=== PATIENT | female | born 1930 | race Caucasian/White ===

== ENCOUNTER 2016-11-09 11:06 | Inpatient (IN) | payer OTHER ==
--- NOTE | 2016-11-09 11:44 | PDOC ---
History of Present Illness - General Chief Complaint: Weakness Stated Complaint: DIFFICULTY WALKING Time Seen by Provider: 11/09/16 11:27 History Source: Patient, Spouse Exam Limitations: No Limitations - History of Present Illness Initial Comments: 11/09/16 11:34 86-year-old female with reportedly no past medical history, but patient has not seen a primary care physician for 30 years, presents with ascending lower extremity numbness. This had occurred over the course of 2 weeks. She initially felt numbness in her toes but had slowly progressed up to her bilateral hips. Patient denies any urinary or bowel incontinence. Denies any back pain. She started feel occasionally tingling and paresthesias in her upper extremities but denies numbness at this time. Denies headache, chest pain or shortness of breath. Denies abdominal pain. Patient does not recall any prior illnesses to this event. She typically walks without assistance but now uses her 's wheelchair to get around. Past History - Past Medical History Allergies/Adverse Reactions: Allergies Allergy/AdvReac Type Severity Reaction Status Date / Time No Known Allergies Allergy Verified 11/09/16 11:14 Home Medications: Ambulatory Orders Aspirin [Aspirin EC] 81 mg PO DAILY 11/09/16 Disorders: Yes (ENDOMETRIOSIS) - Surgical History Appendectomy: Yes (1947) - Psycho/Social/Smoking Cessation Hx Anxiety: No Suicidal Ideation: No Smoking History: Never smoked Information on smoking cessation initiated: No Hx Alcohol Use: Yes (WINE OCCASIONALLY) Drug/Substance Use Hx: No Substance Use Type: None Review of Systems - Review of Systems Able to Perform ROS?: Yes Comments:: 11/09/16 11:46 GENERAL/CONSTITUTIONAL: No fever, weakness. HEAD, EYES, EARS, NOSE AND THROAT: No change in vision. No ear pain or discharge. No sore throat. CARDIOVASCULAR: No chest pain or shortness of breath. RESPIRATORY: No cough, wheezing, or hemoptysis. GASTROINTESTINAL: No abdominal pain, nausea, vomiting, diarrhea, or decreased PO intolerance. GENITOURINARY: No dysuria, frequency, or change in urination. MUSCULOSKELETAL: No joint or muscle swelling or pain. No neck or back pain. SKIN: No rash NEUROLOGIC: No headache, vertigo, loss of consciousness. Ascending lower extremity weakness bilateraaly ENDOCRINE: No increased thirst. No abnormal weight change. HEMATOLOGIC/LYMPHATIC: No anemia, easy bleeding, or history of blood clots. ALLERGIC/IMMUNOLOGIC: No hives or skin allergy. *Physical Exam - Vital Signs Last Vital Signs Temp Pulse Resp BP Pulse Ox 98.5 F 71 15 201/96 97 11/09/16 11:13 11/09/16 11:13 11/09/16 11:13 11/09/16 11:13 11/09/16 11:13 - Physical Exam Comments: 11/09/16 11:54 GENERAL: Awake, alert, and fully oriented, in no acute distress. HEAD: No signs of trauma EYES: PERRLA, EOMI, sclera anicteric, conjunctiva clear ENT: Auricles normal inspection, hearing grossly normal, nares patent, oropharynx clear without exudates. NECK: Normal ROM, supple, no lymphadenopathy, JVD, or masses LUNGS: Breath sounds equal, clear to auscultation bilaterally. No wheezes, and no crackles HEART: Regular rate and rhythm, normal S1 and S2, no murmurs, rubs or gallops ABDOMEN: Soft, nontender, normoactive bowel sounds. No guarding, no rebound. No masses EXTREMITIES: Normal range of motion, no edema. No clubbing or cyanosis. No cords, erythema, or tenderness NEUROLOGICAL: Cranial nerves II through XII intact. Normal speech. Rectal tone normal. No saddle anesthesia. 5/5 strength all extremities (including lower). 2 + patella reflexes b/l. However, decreased sensation throughout lower extremities up to the bilateral hips. No thoracic or lumbar spine tenderness. 2 + DP pulses bilaterally. SKIN: Warm, Dry, normal turgor, no rashes or lesions noted. Heart Score/ECG Review #1 ECG reviewed & interpreted by me at: 11:35 11/09/16 12:08 NSR 68, left axis deviation, +LVH, no std/neeta, TWI III, QTC 423 msec ED Treatment Course - LABORATORY CBC & Chemistry Diagram: 11/09/16 11:50 11/09/16 11:50 Medical Decision Making - Medical Decision Making 11/09/16 12:09 Vital Signs Temp Pulse Resp BP Pulse Ox 98.5 F 71 15 201/96 97 11/09/16 11:13 11/09/16 11:13 11/09/16 11:13 11/09/16 11:13 11/09/16 11:13 Ascending numbness. Though atypical, will need to consider guillain baire syndrome. Though no back pain, will look at lumbar spine with CT for disc herniation and nerve impingement and will look for head CT for any central causes. Labs, UA. Neuro consulted and Dr. Rojas aware of care. Will need to admit the patient to the hospital given that she is unable to ambulate. 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 However no gross acute intercurrent pathology identified. Chest x-ray reviewed. Demonstrates no acute findings. Lumbar spine CT demonstrates multilevel degenerative disc disease as well as anterolisthesis of L4 over L5. There is also impinging left L4 nerve root at L4- L5 level as well as impinging right L5 and reaching left L5 nerve root at L5 and S1. It is certainly very possible that the nerve sensations are secondary to her lumbar spine disc degeneration. Case is discussed with neurologist Dr. Abdi Lauren will see the patient as an inpatient. We'll consider potential MRI. Labs reviewed. Case was discussed with Dr. Lee works as the patient for medical surgical observation. Case discussed in detail with admitting physician including history, physical exam and ancillary studies. Admitting physician has assumed care for the patient, will follow all pending diagnostics and will complete the evaluation and treatment. *DC/Admit/Observation/Transfer Diagnosis at time of Disposition: Unable to walk, Disorder of intervertebral disc of lumbar spine - Discharge Dispostion Condition at time of disposition: Good Admit: Yes
[2016-11-09 12:11] LABS: BASOPHIL 2.1 % (0-2.0); EOSINOPHIL 2.8 % (0-4.5); MCH 29.9 pg (25.7-33.7); MEAN CELL VOLUME 87.8 fl (80-96); MEAN PLT VOLUME 9.7 fl (7.5-11.1); NEUTROPHILS 63.4 % (42.8-82.8); PLATELET COUNT 248 K/MM3 (134-434); RDW 13.4 % (11.6-15.6); WHITE BLOOD COUNT 7.7 K/mm3 (4.0-10.8)
[2016-11-09 12:21] LABS: ALK PHOS 102 U/L (32-92); ANION GAP 12 (8-16); BILIRUBIN,TOTAL 0.6 mg/dl (0.2-1.0); CALCIUM 9.9 mg/dl (8.4-10.2); CO2 23 mmol/L (22-28); CPK(DFH) 56 IU/L (26-140); CREATININE 0.8 mg/dl (0.6-1.3); GLUCOSE,RANDOM 94 mg/dl (74-106); SGOT/AST 20 U/L (10-42); SGPT/ALT 13 U/L (10-40); TOT PROT 7.3 g/dl (6.4-8.3)
[2016-11-09 12:35] LABS: TROPONIN I (DFP) < 0.03 ng/ml (0.03-0.50)
[2016-11-09 14:56] LABS: ACTIVATED PTT 29.5 SECONDS (24.0-38.9)
[2016-11-09 15:00] LABS: INR 1.05 (0.82-1.09); PROTHROMBIN TIME (PATIENT) 11.7 SEC (10.2-13.0)
--- NOTE | 2016-11-09 16:00 | HP ---
Admitting History and Physical - Primary Care Physician PCP: Fernando Lee - Admission History of Present Illness: 86-year-old female with reportedly no past medical history, but patient has not seen a primary care physician for 30 years, presents with ascending lower extremity numbness. This had occurred over the course of 2 weeks. She initially felt numbness in her toes but had slowly progressed up to her bilateral hips. Patient denies any urinary or bowel incontinence. Denies any back pain. She started feel occasionally tingling and paresthesias in her upper extremities but denies numbness at this time. Denies headache, chest pain or shortness of breath. Denies abdominal pain. Patient does not recall any prior illnesses to this event. 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 - Smoking History Smoking history: Never smoked - Alcohol/Substance Use Hx Alcohol Use: Yes (WINE OCCASIONALLY) Home Medications - Allergies Allergies/Adverse Reactions: Allergies Allergy/AdvReac Type Severity Reaction Status Date / Time No Known Allergies Allergy Verified 11/09/16 11:14 - Home Medications Home Medications: Ambulatory Orders Aspirin [Aspirin EC] 81 mg PO DAILY 11/09/16 Physical Examination Vital Signs: Vital Signs Temperature 98.4 F 11/09/16 11:31 Pulse Rate 68 11/09/16 12:18 Respiratory Rate 16 11/09/16 12:18 Blood Pressure 180/80 11/09/16 12:18 O2 Sat by Pulse Oximetry (%) 97 11/09/16 12:18 Constitutional: Yes: No Distress HENT: Yes: Atraumatic Neck: Yes: Supple Cardiovascular: Yes: Regular Rate and Rhythm Respiratory: Yes: CTA Bilaterally Gastrointestinal: Yes: Normal Bowel Sounds Extremities: Yes: WNL Neurological: Yes: Alert, Oriented ...Motor Strength: WNL Imaging - Results Cat Scan: Pending Problem List - Problems (1) Inability to walk Assessment/Plan: mri lumbar soine neuro consult ortho consult prn pain meds pt eval Code(s): R26.2 - DIFFICULTY IN WALKING, NOT ELSEWHERE CLASSIFIED (2) Lumbar disc disease Code(s): M51.9 - UNSP THORACIC, THORACOLUM AND LUMBOSACR INTVRT DISC DISORDER Assessment/Plan Laboratory Tests 11/09/16 11/09/16 11/09/16 11:50 11:50 11:50 WBC 7.7 RBC 4.31 Hgb 12.9 Hct 37.9 MCV 87.8 MCHC 34.0 RDW 13.4 Plt Count 248 MPV 9.7 Neutrophils % 63.4 Lymphocytes % 24.2 Monocytes % 7.5 Eosinophils % 2.8 Basophils % 2.1 H INR 1.05 PTT (Actin FS) 29.5 Sodium 141 Potassium 4.2 Chloride 106 Carbon Dioxide 23 Anion Gap 12 BUN 27 H Creatinine 0.8 Creat Clearance w eGFR > 60 Random Glucose 94 Calcium 9.9 Total Bilirubin 0.6 AST 20 ALT 13 Alkaline Phosphatase 102 H Creatine Kinase Troponin I Total Protein 7.3 Albumin 4.0 Stool Occult Blood 11/09/16 11/09/16 11:50 11:50 WBC RBC Hgb Hct MCV MCHC RDW Plt Count MPV Neutrophils % Lymphocytes % Monocytes % Eosinophils % Basophils % INR PTT (Actin FS) Sodium Potassium Chloride Carbon Dioxide Anion Gap BUN Creatinine Creat Clearance w eGFR Random Glucose Calcium Total Bilirubin AST ALT Alkaline Phosphatase Creatine Kinase 56 Troponin I < 0.03 L Total Protein Albumin Stool Occult Blood Negative Active Medications Generic Name Dose Route Start Last Admin Trade Name Freq PRN Reason Stop Dose Admin Acetaminophen 650 mg 11/09/16 16:45 Tylenol - PO Q6H PRN FEVER OR PAIN
[2016-11-09] MEDS: ACETAMINOPHEN 325 MG TABLET (FP) PO PRN (16:10)
[2016-11-09 16:18] VITALS: BMI 23.8
[2016-11-10] MEDS: ACETAMINOPHEN 325 MG TABLET (FP) PO PRN ×3 (07:36→21:34)
[2016-11-10 09:08] LABS: URINE BILIRUBIN Negative (NEGATIVE); URINE BLOOD Trace-lysed (NEGATIVE); URINE GLUCOSE (UA) Negative (NEGATIVE); URINE KETONE Negative (NEGATIVE); URINE NITRITE Positive (NEGATIVE); URINE PROTEIN Negative (NEGATIVE); URINE UROBILINOGEN 0.2 E.U/dl (0.2-1.0)
[2016-11-10 09:24] LABS: URINE COLOR YELLOW; URINE LEUK ESTERASE 1+ (NEGATIVE)
[2016-11-10 12:10] LABS: URINE APPEARANCE HAZY
[2016-11-10 12:11] LABS: URINE BACTERIA MODERATE /hpf (NEGATIVE)
--- NOTE | 2016-11-10 14:20 | CONSULT ---
Consult - text type - Consultation Consultation Note: Neurology History of Present Illness 86-year-old female with reportedly no past medical history, but patient has not seen a primary care physician for 30 years, presents with ascending lower extremity numbness. This had occurred over the course of 2 weeks. She initially felt numbness in her toes but had slowly progressed up to her bilateral hips. Patient denies any urinary or bowel incontinence. She completed MRI L spine which demonstrated extensive degeneration and multilevel herniations and stenosis. Spoke with her and she reports chronic lumbar spine dysfunction. Surgical intervention not an option due to age and risks. PT and rehab may be beneficial but she would like to be home with her . I ordered physical therapy to help improve ambulation and assess needs. Past History - Past Medical History Allergies/Adverse Reactions: Allergies Allergy/AdvReac Type Severity Reaction Status Date / Time No Known Allergies Allergy Verified 11/09/16 11:14 Home Medications: Ambulatory Orders Aspirin [Aspirin EC] 81 mg PO DAILY 11/09/16 Disorders: Yes (ENDOMETRIOSIS) - Surgical History Appendectomy: Yes (1947) - Psycho/Social/Smoking Cessation Hx Anxiety: No Suicidal Ideation: No Smoking History: Never smoked Information on smoking cessation initiated: No Hx Alcohol Use: Yes (WINE OCCASIONALLY) Drug/Substance Use Hx: No Substance Use Type: None Review of Systems GENERAL/CONSTITUTIONAL: No fever, weakness. HEAD, EYES, EARS, NOSE AND THROAT: No change in vision. No ear pain or discharge. No sore throat. CARDIOVASCULAR: No chest pain or shortness of breath. RESPIRATORY: No cough, wheezing, or hemoptysis. GASTROINTESTINAL: No abdominal pain, nausea, vomiting, diarrhea, or decreased PO intolerance. GENITOURINARY: No dysuria, frequency, or change in urination. MUSCULOSKELETAL: No joint or muscle swelling or pain. No neck or back pain. SKIN: No rash NEUROLOGIC: No headache, vertigo, loss of consciousness. Ascending lower extremity weakness bilateraaly ENDOCRINE: No increased thirst. No abnormal weight change. HEMATOLOGIC/LYMPHATIC: No anemia, easy bleeding, or history of blood clots. ALLERGIC/IMMUNOLOGIC: No hives or skin allergy. *Physical Exam Last Vital Signs Temp Pulse Resp BP Pulse Ox 97.8 F 54 L 18 186/66 99 11/10/16 06:00 11/10/16 06:00 11/10/16 08:00 11/10/16 06:00 11/10/16 08:00 GENERAL: Awake, alert, and fully oriented, in no acute distress. HEAD: No signs of trauma EYES: PERRLA, EOMI, sclera anicteric, conjunctiva clear ENT: Auricles normal inspection, hearing grossly normal, nares patent, oropharynx clear without exudates. NECK: Normal ROM, supple, no lymphadenopathy, JVD, or masses LUNGS: Breath sounds equal, clear to auscultation bilaterally. No wheezes, and no crackles HEART: Regular rate and rhythm, normal S1 and S2, no murmurs, rubs or gallops ABDOMEN: Soft, nontender, normoactive bowel sounds. No guarding, no rebound. No masses EXTREMITIES: Normal range of motion, no edema. No clubbing or cyanosis. No cords, erythema, or tenderness NEUROLOGICAL: Cranial nerves II through XII intact. Normal speech. No saddle anesthesia. 5/5 strength all extremities (including lower). 2+ patella reflexes b/l. No thoracic or lumbar spine tenderness. 2+ DP pulses bilaterally. CBCD WBC 7.7 K/mm3 (4.0-10.8) 11/09/16 11:50 RBC 4.31 M/mm3 (3.60-5.2) 11/09/16 11:50 Hgb 12.9 GM/dl (10.7-15.3) 11/09/16 11:50 Hct 37.9 % (32.4-45.2) 11/09/16 11:50 MCV 87.8 fl (80-96) 11/09/16 11:50 MCHC 34.0 g/dl (32.0-36.0) 11/09/16 11:50 RDW 13.4 % (11.6-15.6) 11/09/16 11:50 Plt Count 248 K/MM3 (134-434) 11/09/16 11:50 MPV 9.7 fl (7.5-11.1) 11/09/16 11:50 CMP Sodium 141 mmol/L (136-145) 11/09/16 11:50 Potassium 4.2 mmol/L (3.5-5.1) 11/09/16 11:50 Chloride 106 mmol/L (98-107) 11/09/16 11:50 Carbon Dioxide 23 mmol/L (22-28) 11/09/16 11:50 Anion Gap 12 (8-16) 11/09/16 11:50 BUN 27 mg/dl (7-18) H 11/09/16 11:50 Creatinine 0.8 mg/dl (0.6-1.3) 11/09/16 11:50 Creat Clearance w eGFR > 60 (>60) 11/09/16 11:50 Calcium 9.9 mg/dl (8.4-10.2) 11/09/16 11:50 Total Bilirubin 0.6 mg/dl (0.2-1.0) 11/09/16 11:50 AST 20 U/L (10-42) 11/09/16 11:50 ALT 13 U/L (10-40) 11/09/16 11:50 Alkaline Phosphatase 102 U/L (32-92) H 11/09/16 11:50 Total Protein 7.3 g/dl (6.4-8.3) 11/09/16 11:50 Albumin 4.0 g/dl (3.5-5.0) 11/09/16 11:50 MRI L spine: reviewed Plan: 86-year-old female with reportedly no past medical history, but patient has not seen a primary care physician for 30 years, presents with ascending lower extremity numbness. This had occurred over the course of 2 weeks. She initially felt numbness in her toes but had slowly progressed up to her bilateral hips. Patient denies any urinary or bowel incontinence. She completed MRI L spine which demonstrated extensive degeneration and multilevel herniations and stenosis. Spoke with her and she reports chronic lumbar spine dysfunction. Surgical intervention not an option due to age and risks. PT and rehab may be beneficial but she would like to be home with her . I ordered physical therapy to help improve ambulation and assess needs. Fall precautions, uses walker at home and encouraged this.
--- NOTE | 2016-11-10 16:20 | CON.ORTH ---
Consult Consult Specialty:: Orthopedics Reason for Consultation:: leg pain - History of Present Illness History of Present Illness: 86 y/o female with no significant past medical history admitted for evaluation of bilateral leg pain and numbness. The patient reports that for years she has been having low back pain radiating to her bilateral lower extremities. Over the past 2 weeks she has developed progressive numbness to both lower extremities as well. Denies bladder/bowel dysfunction, saddle anesthesias. No trauma/falls/injury. 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 - Alcohol/Substance Use Hx Alcohol Use: Yes (WINE OCCASIONALLY) - Smoking History Smoking history: Never smoked Home Medications - Allergies Allergies/Adverse Reactions: Allergies Allergy/AdvReac Type Severity Reaction Status Date / Time No Known Allergies Allergy Verified 11/09/16 11:14 - Home Medications Home Medications: Ambulatory Orders Aspirin [Aspirin EC] 81 mg PO DAILY 11/09/16 Family Disease History - Family Disease History Family History: Unremarkable Review of Systems - Review of Systems Constitutional: reports: No Symptoms Eyes: reports: No Symptoms HENT: reports: No Symptoms Neck: reports: No Symptoms Cardiovascular: reports: No Symptoms Respiratory: reports: No Symptoms Gastrointestinal: reports: No Symptoms Genitourinary: reports: No Symptoms Musculoskeletal: reports: Back Pain Neurological: reports: Numbness Physical Exam for Ortho Vital Signs: Vital Signs Temperature 97.7 F 11/10/16 14:16 Pulse Rate 63 11/10/16 14:16 Respiratory Rate 16 11/10/16 14:16 Blood Pressure 167/59 11/10/16 14:16 O2 Sat by Pulse Oximetry (%) 98 11/10/16 14:16 Constitutional: Yes: Well Nourished, No Distress, Calm Neck: Yes: WNL, Supple, Trachea Midline Cardiovascular: Yes: WNL, Regular Rate and Rhythm Respiratory: Yes: WNL, Regular Integumentary: Yes: WNL Labs: INR, PTT INR 1.05 (0.82-1.09) 11/09/16 11:50 - Lower Extremity Leg: Yes: Other (Mild tenderness to the left sided lumbar paraspinal musculature. No spinous process tenderness. Negative straight leg test bilaterally.) - Affected Extremity Motor Strength: 5/5: Right Leg (5/5 strenght LLE, RLE) Peripheral Pulses WNL: Yes Peripheral Pulses: 2+ Left Doralis Pedis, 2+ Right Dorsalis Pedis Neuro/Vascular Assessment: Yes: Warm, [place], Normal Sensation Imaging - Results Cat Scan: Report Reviewed, Image Reviewed MRI: Report Reviewed (Lumbar spine MRI reviewed showing multi-level degenerative changes, disc herniations and spinal stenosis.), Image Reviewed Problem List - Problems (1) Lumbar disc disease Code(s): M51.9 - UNSP THORACIC, THORACOLUM AND LUMBOSACR INTVRT DISC DISORDER Assessment/Plan I reviewed today's findings with the patient -we reviewed that there are extensive degenerative changes present -the patient will begin PT -she will follow up with Dr. Liu in 1-2 weeks to consider further modalities including epidural injections and/or surgical intervention
--- NOTE | 2016-11-10 19:20 | PN ---
Progress Note, Physician History of Present Illness: doing well - Current Medication List Current Medications: Active Medications Acetaminophen (Tylenol -) 650 mg PO Q6H PRN PRN Reason: FEVER OR PAIN Last Admin: 11/10/16 14:27 Dose: 650 mg - Objective Vital Signs: Vital Signs Temperature 97.7 F 11/10/16 14:16 Pulse Rate 63 11/10/16 14:16 Respiratory Rate 16 11/10/16 14:16 Blood Pressure 167/59 11/10/16 14:16 O2 Sat by Pulse Oximetry (%) 98 11/10/16 14:16 Constitutional: Yes: No Distress HENT: Yes: Atraumatic Neck: Yes: Supple Cardiovascular: Yes: Regular Rate and Rhythm Respiratory: Yes: CTA Bilaterally Gastrointestinal: Yes: Normal Bowel Sounds Extremities: Yes: WNL Neurological: Yes: Alert, Oriented Labs: INR, PTT INR 1.05 (0.82-1.09) 11/09/16 11:50 Problem List - Problems (1) Inability to walk Assessment/Plan: mri lumbar spine done neuro and ortho consult..reviewed pt eval pt does not want to go to rehab Code(s): R26.2 - DIFFICULTY IN WALKING, NOT ELSEWHERE CLASSIFIED (2) Lumbar disc disease Code(s): M51.9 - UNSP THORACIC, THORACOLUM AND LUMBOSACR INTVRT DISC DISORDER Assessment/Plan
[2016-11-11] MEDS: ACETAMINOPHEN 325 MG TABLET (FP) PO PRN ×2 (10:20→20:48)
--- NOTE | 2016-11-11 11:17 | PN ---
Progress Note (short form) - Note Progress Note: Neurology History of Present Illness 86-year-old female with reportedly no past medical history, but patient has not seen a primary care physician for 30 years, presents with ascending lower extremity numbness. This had occurred over the course of 2 weeks. She initially felt numbness in her toes but had slowly progressed up to her bilateral hips. Patient denies any urinary or bowel incontinence. She completed MRI L spine which demonstrated extensive degeneration and multilevel herniations and stenosis. Spoke with her and she reports chronic lumbar spine dysfunction. Surgical intervention not an option due to age and risks. PT and rehab may be beneficial but she would like to be home with her . I ordered physical therapy to help improve ambulation and assess needs. Ortho consulted, patient otherwise stable. Active Medications Acetaminophen (Tylenol -) 650 mg PO Q6H PRN PRN Reason: FEVER OR PAIN Last Admin: 11/11/16 10:20 Dose: 650 mg *Physical Exam Last Vital Signs Temp Pulse Resp BP Pulse Ox 98.0 F 63 16 139/44 96 11/11/16 05:53 11/11/16 05:53 11/11/16 08:50 11/11/16 05:53 11/11/16 08:50 GENERAL: Awake, alert, and fully oriented, in no acute distress. HEAD: No signs of trauma EYES: PERRLA, EOMI, sclera anicteric, conjunctiva clear ENT: Auricles normal inspection, hearing grossly normal, nares patent, oropharynx clear without exudates. NECK: Normal ROM, supple, no lymphadenopathy, JVD, or masses LUNGS: Breath sounds equal, clear to auscultation bilaterally. No wheezes, and no crackles HEART: Regular rate and rhythm, normal S1 and S2, no murmurs, rubs or gallops ABDOMEN: Soft, nontender, normoactive bowel sounds. No guarding, no rebound. No masses EXTREMITIES: Normal range of motion, no edema. No clubbing or cyanosis. No cords, erythema, or tenderness NEUROLOGICAL: Cranial nerves II through XII intact. Normal speech. No saddle anesthesia. 5/5 strength all extremities (including lower). 2+ patella reflexes b/l. No thoracic or lumbar spine tenderness. 2+ DP pulses bilaterally. CBCD WBC 7.7 K/mm3 (4.0-10.8) 11/09/16 11:50 RBC 4.31 M/mm3 (3.60-5.2) 11/09/16 11:50 Hgb 12.9 GM/dl (10.7-15.3) 11/09/16 11:50 Hct 37.9 % (32.4-45.2) 11/09/16 11:50 MCV 87.8 fl (80-96) 11/09/16 11:50 MCHC 34.0 g/dl (32.0-36.0) 11/09/16 11:50 RDW 13.4 % (11.6-15.6) 11/09/16 11:50 Plt Count 248 K/MM3 (134-434) 11/09/16 11:50 MPV 9.7 fl (7.5-11.1) 11/09/16 11:50 CMP Sodium 141 mmol/L (136-145) 11/09/16 11:50 Potassium 4.2 mmol/L (3.5-5.1) 11/09/16 11:50 Chloride 106 mmol/L (98-107) 11/09/16 11:50 Carbon Dioxide 23 mmol/L (22-28) 11/09/16 11:50 Anion Gap 12 (8-16) 11/09/16 11:50 BUN 27 mg/dl (7-18) H 11/09/16 11:50 Creatinine 0.8 mg/dl (0.6-1.3) 11/09/16 11:50 Creat Clearance w eGFR > 60 (>60) 11/09/16 11:50 Calcium 9.9 mg/dl (8.4-10.2) 11/09/16 11:50 Total Bilirubin 0.6 mg/dl (0.2-1.0) 11/09/16 11:50 AST 20 U/L (10-42) 11/09/16 11:50 ALT 13 U/L (10-40) 11/09/16 11:50 Alkaline Phosphatase 102 U/L (32-92) H 11/09/16 11:50 Total Protein 7.3 g/dl (6.4-8.3) 11/09/16 11:50 Albumin 4.0 g/dl (3.5-5.0) 11/09/16 11:50 MRI L spine: reviewed Plan: 86-year-old female with reportedly no past medical history, but patient has not seen a primary care physician for 30 years, presents with ascending lower extremity numbness. This had occurred over the course of 2 weeks. She initially felt numbness in her toes but had slowly progressed up to her bilateral hips. Patient denies any urinary or bowel incontinence. She completed MRI L spine which demonstrated extensive degeneration and multilevel herniations and stenosis. Spoke with her and she reports chronic lumbar spine dysfunction. Surgical intervention not an option due to age and risks. PT and rehab may be beneficial but she would like to be home with her . I ordered physical therapy to help improve ambulation and assess needs. Fall precautions, uses walker at home and encouraged this. Ortho consulted. Continue ongoing mgmt.
--- NOTE | 2016-11-11 17:46 | PN ---
Progress Note, Physician History of Present Illness: doing well - Current Medication List Current Medications: Active Medications Acetaminophen (Tylenol -) 650 mg PO Q6H PRN PRN Reason: FEVER OR PAIN Last Admin: 11/11/16 10:20 Dose: 650 mg - Objective Vital Signs: Vital Signs Temperature 97.9 F 11/11/16 14:21 Pulse Rate 66 11/11/16 14:21 Respiratory Rate 16 11/11/16 14:21 Blood Pressure 149/47 11/11/16 14:21 O2 Sat by Pulse Oximetry (%) 97 11/11/16 14:21 HENT: Yes: Atraumatic Neck: Yes: Supple Cardiovascular: Yes: Regular Rate and Rhythm Respiratory: Yes: CTA Bilaterally Gastrointestinal: Yes: Normal Bowel Sounds Extremities: Yes: WNL Neurological: Yes: Alert, Oriented Labs: INR, PTT INR 1.05 (0.82-1.09) 11/09/16 11:50 Problem List - Problems (1) Inability to walk Assessment/Plan: mri lumbar spine done neuro and ortho consult..reviewed pt eval pt does not want to go to rehab arrange home health aid Code(s): R26.2 - DIFFICULTY IN WALKING, NOT ELSEWHERE CLASSIFIED (2) Lumbar disc disease Code(s): M51.9 - UNSP THORACIC, THORACOLUM AND LUMBOSACR INTVRT DISC DISORDER Assessment/Plan
[2016-11-12] MEDS: ACETAMINOPHEN 325 MG TABLET (FP) PO PRN ×2 (06:49→15:15)
[2016-11-12] MEDS ORDERED: SULFAMETHOXAZOLE/TRIMETHOPRIM 800MG/160MG D.S. TABLET PO ONE (14:47)
--- NOTE | 2016-11-12 14:47 | PN ---
Progress Note, Physician History of Present Illness: doing well - Current Medication List Current Medications: Active Medications Acetaminophen (Tylenol -) 650 mg PO Q6H PRN PRN Reason: FEVER OR PAIN Last Admin: 11/12/16 06:49 Dose: 650 mg Trimethoprim/Sulfamethoxazole (Bactrim Ds -) 1 each PO BID JASSON - Objective Vital Signs: Vital Signs Temperature 98.0 F 11/12/16 06:00 Pulse Rate 58 L 11/12/16 06:00 Respiratory Rate 20 11/12/16 08:00 Blood Pressure 180/65 11/12/16 06:00 O2 Sat by Pulse Oximetry (%) 98 11/12/16 08:00 Constitutional: Yes: No Distress HENT: Yes: Atraumatic Neck: Yes: Supple Cardiovascular: Yes: Regular Rate and Rhythm Respiratory: Yes: CTA Bilaterally Gastrointestinal: Yes: Normal Bowel Sounds Extremities: Yes: WNL Neurological: Yes: Alert, Oriented Labs: INR, PTT INR 1.05 (0.82-1.09) 11/09/16 11:50 Problem List - Problems (1) Inability to walk Assessment/Plan: doing better Code(s): R26.2 - DIFFICULTY IN WALKING, NOT ELSEWHERE CLASSIFIED (2) Lumbar disc disease Code(s): M51.9 - UNSP THORACIC, THORACOLUM AND LUMBOSACR INTVRT DISC DISORDER (3) UTI (urinary tract infection) Assessment/Plan: start po bactrim and continue for 1 week Code(s): N39.0 - URINARY TRACT INFECTION, SITE NOT SPECIFIED (4) HTN (hypertension) Assessment/Plan: will start norvasc monitor Code(s): I10 - ESSENTIAL (PRIMARY) HYPERTENSION
[2016-11-12] MEDS: amLODIPine BESYLATE 5 MG TABLET (FP) PO SCH (15:17)
[2016-11-12 16:36] LABS: BASOPHIL 0.9 % (0-2.0); EOSINOPHIL 3.5 % (0-4.5); MCH 29.4 pg (25.7-33.7); MCHC 33.1 g/dl (32.0-36.0); MEAN CELL VOLUME 88.9 fl (80-96); MEAN PLT VOLUME 9.5 fl (7.5-11.1); NEUTROPHILS 63.4 % (42.8-82.8); PLATELET COUNT 227 K/MM3 (134-434); WHITE BLOOD COUNT 7.2 K/mm3 (4.0-10.8)
[2016-11-12 17:03] LABS: ALBUMIN 3.5 g/dl (3.5-5.0); ALK PHOS 91 U/L (32-92); ANION GAP 9 (8-16); BILIRUBIN,TOTAL 0.5 mg/dl (0.2-1.0); CALCIUM 9.4 mg/dl (8.4-10.2); CO2 25 mmol/L (22-28); CREATININE 0.8 mg/dl (0.6-1.3); GLUCOSE,RANDOM 119 mg/dl (74-106); SGOT/AST 18 U/L (10-42); SGPT/ALT 12 U/L (10-40); TOT PROT 6.6 g/dl (6.4-8.3)
[2016-11-12] MEDS ORDERED: amLODIPine BESYLATE 5 MG TABLET (FP) PO ONE (20:30)
[2016-11-12] MEDS: SULFAMETHOXAZOLE/TRIMETHOPRIM 800MG/160MG D.S. TABLET PO SCH (21:06)
[2016-11-12 22:04] VITALS: TEMP 98.2
[2016-11-13 06:24] VITALS: BP 154/91; PULSE 80
--- NOTE | 2016-11-13 08:44 | EKG ---
Test Reason : Blood Pressure : / mmHG Vent. Rate : 068 BPM Atrial Rate : 068 BPM P-R Int : 164 ms QRS Dur : 090 ms QT Int : 398 ms P-R-T Axes : 058 -30 012 degrees QTc Int : 423 ms SINUS RHYTHM WITH PREMATURE ATRIAL COMPLEXES LEFT AXIS DEVIATION MINIMAL VOLTAGE CRITERIA FOR LVH, MAY BE NORMAL VARIANT ABNORMAL ECG WHEN COMPARED WITH ECG OF 06-FEB-2000 08:42, PREMATURE ATRIAL COMPLEXES ARE NOW PRESENT Confirmed by ANA ORTEGA MD ([id number]) on 11/13/2016 8:43:35 AM Referred By: JUANCARLOS DOYLE Confirmed By:ANA ORTEGA MD
[2016-11-13] MEDS: SULFAMETHOXAZOLE/TRIMETHOPRIM 800MG/160MG D.S. TABLET PO SCH (09:31)
[2016-11-13] MEDS: amLODIPine BESYLATE 5 MG TABLET (FP) PO SCH (09:31)
--- NOTE | 2016-11-13 20:09 | DS ---
Physical Examination Vital Signs: Vital Signs Temperature 98.2 F 11/13/16 06:00 Pulse Rate 80 11/13/16 06:00 Respiratory Rate 19 11/13/16 10:00 Blood Pressure 154/91 11/13/16 06:00 O2 Sat by Pulse Oximetry (%) 97 11/13/16 10:00 Labs: CBC, BMP 11/12/16 16:00 11/12/16 16:00 Discharge Summary Reason For Visit: LUMBAR DISC DISEASE Condition: Good - Instructions Diet, Activity, Other Instructions: see pmd next 2 days for bp follow up Disposition: HOME - Home Medications Comprehensive Discharge Medication List: Ambulatory Orders Aspirin [Aspirin EC] 81 mg PO DAILY 11/09/16 Sulfamethoxazole/Trimethoprim [Bactrim Ds -] 1 tab PO BID #14 tablet 11/12/16 Amlodipine Besylate [Norvasc -] 10 mg PO DAILY #30 tablet 11/13/16 DC HOME FU PMD FOR BP CHECK IN 1-2 DAYS
== END 2016-11-13 12:31 | disposition home or self-care (01) | DRG 552 ==
LOC: FER 11:06 → FM/S 15:19 → OBSVTOIN 15:19
PROVIDERS: ADMIT Internal Medicine; ATTEND Internal Medicine
DX: M51.9 Unspecified thoracic, thoracolumbar and lumbosacral intervertebral disc disorder (principal); N39.0 Urinary tract infection, site not specified; R26.2 Difficulty in walking, not elsewhere classified; I10 Essential (primary) hypertension
CPT/HCPCS: 36415; 70450-TC; 71010-TC; 72131-TC; 72148-TC; 80053; 81003; 81015; 82272; 82550; 84484; 85025; 85610; 85730; 87086; 87186; 93005; 97116-GP; 97162-GP; 99285-25

== ENCOUNTER 2019-04-25 15:23 | Inpatient (IN) | payer OTHER ==
[2019-04-25] MEDS ORDERED: ACETAMINOPHEN 325 MG TABLET (FP) PO ONE (16:29)
[2019-04-25] MEDS ORDERED: DIPHTH,PERTUSS(ACELL),TET 0.5 ML DISP.SYRIN IM ONE ×2 (16:29→18:02)
[2019-04-25] MEDS ORDERED: AMPICILLIN NA/SULBACTAM NA 3 GM in SODIUM CHLORIDE 100 ML IVPB ONE (16:30)
--- NOTE | 2019-04-25 16:33 | PDOC ---
Documentation entered by Jayla Mejia SCRIBE, acting as scribe for Xin Higgins MD. Xin Higgins MD: This documentation has been prepared by the Roberto sultana Sammi, SCRIBE, under my direction and personally reviewed by me in its entirety. I confirm that the documentation accurately reflects all work, treatment, procedures, and medical decision making performed by me. History of Present Illness - General Chief Complaint: Bite Stated Complaint: DOG BITE, FALL History Source: Patient Exam Limitations: No Limitations - History of Present Illness Initial Comments: 04/25/19 16:36 The patient is an 89 year old female with no medical history who presents for evaluation of a dog bite to the left index finger from around 7pm last night and now a fall today while coming to the ED. The patient was walking in the dark to her car when a stranger's pet dog had bitten her while she was petting him. As per friend, the patient refused to get medical attention as the sales market leader informed that the dog was fully vaccinated. She notes the left index finger was erythematous and painful this morning and endorses tingling to the area. The patient reports being evaluated at urgent care this afternoon, where she had irrigation and wound care, partial sutures placed for approximation, and notes being sent to the ED for IV antibiotics. Of note, the patient has not followed with a PMD in several years and cannot recall last tetanus. The patient also complains of right elbow pain and abrasion s/p mechanical trip and fall upon arrival to the ED. The patient reports attempting to step on the curb without her cane, then losing her balance and falling on her right side. Denies LOC or head trauma. Denies all other complaints. Denies fever, chills, chest pain, SOB, palpitation, dizziness, weakness, N, V, D , abdominal pain, bladder and bowel problems, leg swelling, No sick contacts or travel. No new changes in medications. Allergies: None Social history: Lives with family. No tobacco, ETOH or drug use. Surgical history: appendectomy, uterine fibroidectomy Meds: as documented in EMR PMD: None Review of systems Constitutional: no fevers or chills. No weakness HEENT: no headache or dizziness. No congestion. No visual/hearing disturbances. CVS: no cp or syncope. Resp: no sob. No cough. Gastrointestinal: no abdominal pain, nausea, vomiting, diarrhea. Genitourinary: no urinary sx, hematuria. MUSCULOSKELETAL: No joint pain and swelling. No neck or back pain. SKIN: +right elbow pain and ecchymosis, +laceration wound. +abrasions. Hematologic: no easy bruising/bleeding. NEUROLOGIC: No headache, dizziness, LOC or altered mental status. No weakness, + numbness or tingling. Psych: no anxiety or depression Allergic/Immunologic: no allergies All other systems reviewed and negative, or as documented in HPI. Physical exam General: Well appearing, awake and alert, NAD. HEENT: NCAT, PERRL, EOMI, clear conjunctiva, anicteric, moist mucous membranes , clear oropharynx, no oral lesions.. Neck: neck supple, FROM Resp: CTAB, normal and even respirations, no respiratory distress CVS: irregularly irregular, no murmurs, 2+ peripheral pulses throughout, no peripheral edema Abdomen: soft, NTND, no rebound or guarding. No CVAT. Back: nontender, normal inspection and ROM MSK: no edema, SHANNON x4, ROM limited in right elbow and left index finger. +palp swelling and ecchymosis to the right olecranon. Extremities: no calf tenderness Neuro: alert, oriented appropriately; no focal neurologic deficits Skin: Left finger middle phalanx on the palmar aspect with 4 cm V shaped laceration and [address], Left finger middle phalanx on the dorsal aspect measuring 2.5cm, few stitches in place. +right elbow superficial abrasions x2 with tenderness and surrounding ecchymosis. 04/25/19 17:56 04/25/19 17:57 04/25/19 18:28 04/26/19 07:27 Past History - Past Medical History Allergies/Adverse Reactions: Allergies Allergy/AdvReac Type Severity Reaction Status Date / Time No Known Allergies Allergy Verified 04/25/19 16:03 Home Medications: Ambulatory Orders Aspirin [Aspirin EC] 162 mg PO DAILY 11/09/16 Disorders: Yes (ENDOMETRIOSIS) - Surgical History Appendectomy: Yes (1948) - Psycho Social/Smoking Cessation Hx Smoking History: Never smoked Hx Alcohol Use: Yes (WINE OCCASIONALLY) Drug/Substance Use Hx: No Substance Use Type: None *Physical Exam - Vital Signs Last Vital Signs Temp Pulse Resp BP Pulse Ox 97.3 F L 88 20 170/105 H 96 04/25/19 15:24 04/25/19 15:24 04/25/19 15:24 04/25/19 15:24 04/25/19 15:24 Procedures - Splinting Splint Location: Right: Elbow (right olecranon fracture) Pre-Proc Neuro Vasc Exam: normal Hand-Made Type: orthoglass Splint Type: Yes: Posterior Post-Proc Neuro Vasc Exam: normal Robert Bandage: yes Sling: Yes Complications: No - Laceration/Wound Repair Left Dorsal Finger 2nd digit Wound Length: to 2.5 cm Wound Explored: contaminated Wound's Depth, Shape: linear, contused tissue Irrigated w/ Saline: Yes Betadine Prep: No (soap and water, alcohol) Anesthesia: 1% Lidocaine Amount of Anesthetic (ccs): 2 Wound Debrided: minimal Wound Repaired With: Sutures Suture Size/Type: 5:0 Number of Sutures: 2 (loose approximation) Sterile Dressing Applied: Yes Splint Applied: Yes (finger splint) Sling Applied: No Left Volar Finger 2nd digit Wound Length: 2.6 to 5.0 cm Wound Explored: contaminated Wound's Depth, Shape: irregular, flap, contused tissue Irrigated w/ Saline: Yes Betadine Prep: No (soap and water, alcohol) Anesthesia: 1% Lidocaine Amount of Anesthetic (ccs): 2 Wound Debrided: minimal Wound Repaired With: Sutures Suture Size/Type: 5:0 Number of Sutures: 4 (central one for the flap with corner stitch) Layer Closure: No Sterile Dressing Applied: Yes Splint Applied: Yes (finger splint) Type of Splint Applied: finger splint Progress: 04/25/19 20:05 bacitracin, xeroform, gauze and finger splint and dry dressing Heart Score/ECG Review #1 ECG reviewed & interpreted by me at: 16:45 General ECG Interpretation: Normal Rate, Normal Intervals Compared to previous ECG there are: Changes noted 04/25/19 17:38 Atrial fibrillation 92 bpm, left axis deviation, nonspecific T wave abnormalities in the inferior leads, normal intervals. ED Treatment Course - LABORATORY CBC & Chemistry Diagram: 04/25/19 17:35 04/25/19 17:35 - RADIOLOGY Radiology Studies Ordered: Category Date Time Status CHEST PA & LAT [RAD] Stat Radiology 04/25/19 16:29 Ordered ELBOW-RIGHT [RAD] Stat Radiology 04/25/19 16:31 Ordered FINGER(S) LEFT [RAD] Stat Radiology 04/25/19 16:31 Ordered Medical Decision Making - Medical Decision Making 04/25/19 16:32 Vital Signs Temp Pulse Resp BP Pulse Ox 97.3 F L 88 20 170/105 H 96 04/25/19 15:24 04/25/19 15:24 04/25/19 15:24 04/25/19 15:24 04/25/19 15:24 Patient with relatively large complicated partially sutured left index finger dog bite/laceration from yesterday. X-ray of the left second digit with loss of bone density and degenerative changes and swelling from the dog bite/laceration. No foreign body seen. No acute fracture or subluxation is seen. There may be prior distal radius fracture, patient is not tender there and did not have direct trauma on her left wrist from today. Left elbow with acute right olecranon fracture, will splint CXR unremarkable, degenerative changes, large heart and slight tortuous aorta, normal jacquelyn and clear lungs. ECG with afib, pt not symptomatic. on ASA already. no known history of Afib 04/25/19 17:35 tetanus updated declines analgesia IV Unasyn for empiric coverage. [facility] paperwork performed no rabies indicated for now, family working on tracking pet animal which did not display s/s rabies and reported to be immunized and owned. during ED stay, tracking cellulitis of the left second digit from laceration wound. 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 reached out to Dr Del Valle, discussed case, but unavailable for consultation. pt offered transfer to [facility] for specialty care/hands/plastics for the finger infection with complicated laceration from animal bite. discussed risks and benefits of transfer, pt refused. pt had signed paperwork initially for the refusal of transfer, but would be amenable to admission for IV abx and medical management. orthopedic cs with Dr Julio, also available for hand - discussed case, ok with the posterior splint, placed in the ED also discussed the finger laceration/wound infection - unasyn, additional washout and irrigation (pt had her finger soaking in soapy water, and had loose approx sutures placed at urgent care). 1 liter sterile water copiously with splash guard. recommended removal and primary loose closure and allow for drainage see procedure note done in the ED. admission to medical service, admitting to Dr Ledesma, s/o to Dr Crawley, discussed the care, consult, medical management. 04/25/19 19:58 04/25/19 20:05 Discharge - Discharge Information Problems reviewed: Yes Clinical Impression/Diagnosis: Laceration of finger, left, complicated Qualifiers: Encounter type: initial encounter Qualified Code(s): S61.412A - Laceration without foreign body of left hand, initial encounter Closed olecranon fracture Qualifiers: Encounter type: initial encounter Laterality: right Qualified Code(s): S52.021A - Displaced fracture of olecranon process without intraarticular extension of right ulna, initial encounter for closed fracture Condition: Fair - Admission Yes - Follow up/Referral - Patient Discharge Instructions - Post Discharge Activity
[2019-04-25] MEDS ORDERED: AMPICILLIN NA/SULBACTAM NA 3 GM VIAL ONE ×2 (17:09→20:59)
[2019-04-25 18:00] LABS: BASO % 0.7 % (0-2.0); EOS % 0.9 % (0-4.5); HEMOGLOBIN 13.7 GM/dl (10.7-15.3); LYMPH % 14.1 % (8-40); MCH 30.5 pg (25.7-33.7); MCHC 32.7 g/dl (32.0-36.0); MEAN CELL VOLUME 93.3 fl (80-96); MEAN PLT VOLUME 9.5 fl (7.5-11.1); MONO % 9.8 % (3.8-10.2); NEUT % 74.5 % (42.8-82.8); PLATELET COUNT 223 K/MM3 (134-434); RDW 12.7 % (11.6-15.6); WHITE BLOOD COUNT 12.8 K/mm3 (4.0-10.8)
[2019-04-25] MEDS ORDERED: ACETAMINOPHEN 325 MG TABLET (FP) ONE (18:02)
[2019-04-25 18:05] LABS: ALBUMIN 4.1 g/dl (3.4-5.0); BILIRUBIN,TOTAL 0.7 mg/dl (0.2-1); CALCIUM 9.3 mg/dl (8.5-10); CREATININE 0.8 mg/dl (0.55-1.3); POTASSIUM 4.3 mmol/L (3.5-5.1); TOT PROT 7.6 g/dl (6.4-8.2)
--- NOTE | 2019-04-25 20:08 | HP ---
Admitting History and Physical - Primary Care Physician PCP: - Admission Chief Complaint: dog bite, S/p fall History of Present Illness: 89 year old female with no medical history arrived to ED for evaluation after a dog bite to the left index finger yesterday (7pm at night) and now a fall today while coming to the ED. According to patient it was a stranger's pet dog that bitten her while she was petting him. As per friend, the patient refused to get medical attention as the terrazzo polisher helper informed that the dog was fully vaccinated, however she later in the morning noted the left index finger was erythematous and painful and also endorses tingling to the area. The patient reports being evaluated at urgent care this afternoon, where she had irrigation and wound care , partial sutures placed for approximation, and notes being sent to the ED for IV antibiotics. Patient has not followed up with PMD in several years and cannot recall last tetanus. The patient also complains of right elbow pain and abrasion s/p mechanical trip and fall upon arrival to the ED. The patient reports attempting to step on the curb without her cane, then losing her balance and falling on her right side. Denies LOC or head trauma. Patient denies fever, chills, chest pain, SOB, palpitation, dizziness, weakness , N, V, D, abdominal pain, bladder and bowel problems, leg swelling, No sick contacts or travel. No new changes in medications. History Source: Patient, Medical Record Limitations to Obtaining History: No Limitations - Past Medical History Renal/: Yes: Other (Endometriosis) - Past Surgical History Past Surgical History: Yes: Appendectomy - Smoking History Smoking history: Never smoked Have you smoked in the past 12 months: No - Alcohol/Substance Use Hx Alcohol Use: Yes (WINE OCCASIONALLY) History of Substance Use: reports: None - Social History Usual Living Arrangement: Yes: Alone ADL: Independent History of Recent Travel: No Home Medications - Allergies Allergies/Adverse Reactions: Allergies Allergy/AdvReac Type Severity Reaction Status Date / Time No Known Allergies Allergy Verified 04/25/19 16:03 - Home Medications Home Medications: Ambulatory Orders Aspirin [Aspirin EC] 162 mg PO DAILY 11/09/16 Family Medical History Family History: Denies Review of Systems - Review of Systems Constitutional: reports: No Symptoms Eyes: reports: No Symptoms HENT: reports: No Symptoms Neck: reports: No Symptoms Cardiovascular: reports: No Symptoms Respiratory: reports: No Symptoms Gastrointestinal: reports: No Symptoms Genitourinary: reports: No Symptoms Breasts: reports: No Symptoms Reported Musculoskeletal: reports: Decreased ROM, Extremity Pain (right elbow pain with abrasion present, left index finger pain, and sutures present) Integumentary: reports: Erythema (left index finger) Endocrine: reports: No Symptoms Hematology/Lymphatic: reports: No Symptoms Physical Examination Vital Signs: Vital Signs Temperature 97.3 F L 04/25/19 15:24 Pulse Rate 88 04/25/19 15:24 Respiratory Rate 20 04/25/19 15:24 Blood Pressure 170/105 H 04/25/19 15:24 O2 Sat by Pulse Oximetry (%) 96 04/25/19 15:24 Constitutional: Yes: No Distress, Calm Eyes: Yes: Conjunctiva Clear, EOM Intact HENT: Yes: Atraumatic, Normocephalic Neck: Yes: Supple, Trachea Midline Cardiovascular: Yes: Regular Rate and Rhythm Respiratory: Yes: Regular, CTA Bilaterally Gastrointestinal: Yes: Normal Bowel Sounds, Soft Extremities: Yes: Erythema, Other (ROM limited in right elbow and left index finger. +palp swelling and ecchymosis to the right olecranono.) Edema: No Peripheral Pulses WNL: Yes Integumentary: Yes: Laceration Wound/Incision: Yes: Other (Left finger middle phalanx laceration and [address], Left finger middle phalanx on the dorsal aspect measuring 2.5cm, few stitches in place. +right elbow superficial abrasions x2 with tenderness and surrounding ecchymosis.) Neurological: Yes: Alert, Oriented Labs: CBC, BMP 04/25/19 17:35 04/25/19 17:35 Imaging - Results Chest X-ray: Report Reviewed (CXR unremarkable, degenerative changes, large heart and slight tortuous aorta, normal jacquelyn and clear lungs.) X-ray: Report Reviewed (X-ray of the left second digit with loss of bone density and degenerative changes and swelling from the dog bite/laceration. No foreign body seen. No acute fracture or subluxation is seen. There may be prior distal radius fracture. Left elbow with acute right olecranon fracture) EKG: Report Reviewed (Atrial fibrillation 92 bpm, left axis deviation, nonspecific T wave abnormalities in the inferior leads, normal intervals.) Problem List - Problems (1) Cellulitis Code(s): L03.90 - CELLULITIS, UNSPECIFIED (2) Closed olecranon fracture Code(s): S52.023A - DISP FX OF OLECRAN PRO W/O INTARTIC EXTN UNSP ULNA, INIT Qualifiers: Encounter type: initial encounter Laterality: right Qualified Code(s): S52.021A - Displaced fracture of olecranon process without intraarticular extension of right ulna, initial encounter for closed fracture (3) Laceration of finger, left, complicated Code(s): S61.412A - LACERATION WITHOUT FOREIGN BODY OF LEFT HAND, INIT ENCNTR Qualifiers: Encounter type: initial encounter Qualified Code(s): S61.412A - Laceration without foreign body of left hand, initial encounter (4) Status post fall Code(s): Z91.81 - HISTORY OF FALLING Assessment/Plan 89 year old female with no medical history arrived to ED for evaluation after a dog bite to the left index finger yesterday and now s/p fall today while coming to the ED. Left index finger was erythematous and painful, (s/p irrigation and wound care, partial sutures placed in urgent care), arrived to ED for IV antibiotics, s/p mechanical trip and fall prior to arrival to the ED, complains of right elbow pain and abrasion. # Cellulitis # Left index finger laceration - s/p wound care, and finger splint applied in ED - tentanus given, s/p IV Unasyn given x1 in ED - continue with Unasyn q 6 hours - continue with tylenol po q 6 hours - follow up wound care - follow up ID - follow up repeat cbc, bmp # Left elbow with acute right olecranon fracture - s/p splint in ED - maintain splint in place, monitor circulation - follow up ortho in AM - pain management - elevate extremity VTE: heparin SQ, TEDS, early ambulation FEN: IVF x 24 hours, replace lytes as needed, Regular diet Visit type - Emergency Visit Emergency Visit: Yes ED Registration Date: 04/25/19 Care time: The patient presented to the Emergency Department on the above date and was hospitalized for further evaluation of their emergent condition. - New Patient This patient is new to me today: Yes Date on this admission: 04/26/19 - Critical Care Critical Care patient: No
[2019-04-25] MEDS ORDERED: SODIUM CHLORIDE 1,000 ML IV SCH (20:45)
[2019-04-25] MEDS ORDERED: SODIUM CHLORIDE 100 ML IVPB ONE (20:59)
[2019-04-25] MEDS: AMPICILLIN NA/SULBACTAM NA 3 GM in SODIUM CHLORIDE 100 ML IVPB SCH (21:06)
[2019-04-25] MEDS: HEPARIN NA (PORCINE) 5,000 UNITS/ML 1ML VIAL SQ SCH (21:53)
[2019-04-25 22:52] VITALS: BMI 23.5
[2019-04-26] MEDS ORDERED: AMPICILLIN NA/SULBACTAM NA 3 GM VIAL ONE ×4 (02:26→21:08)
[2019-04-26] MEDS ORDERED: SODIUM CHLORIDE 100 ML IVPB ONE ×4 (02:27→21:08)
[2019-04-26] MEDS: ACETAMINOPHEN 325 MG TABLET (FP) PO PRN (02:40)
[2019-04-26] MEDS: AMPICILLIN NA/SULBACTAM NA 3 GM in SODIUM CHLORIDE 100 ML IVPB SCH ×4 (02:41→21:14)
[2019-04-26] MEDS: HEPARIN NA (PORCINE) 5,000 UNITS/ML 1ML VIAL SQ SCH ×3 (06:27→21:14)
[2019-04-26 08:27] LABS: HEMATOCRIT 34.8 % (32.4-45.2); HEMOGLOBIN 11.9 GM/dl (10.7-15.3); MCH 32.3 pg (25.7-33.7); MCHC 34.3 g/dl (32.0-36.0); MEAN CELL VOLUME 94.4 fl (80-96); MEAN PLT VOLUME 9.3 fl (7.5-11.1); PLATELET COUNT 204 K/MM3 (134-434); RBC 3.69 M/mm3 (3.60-5.2); RDW 12.9 % (11.6-15.6); WHITE BLOOD COUNT 8.1 K/mm3 (4.0-10.8)
[2019-04-26 08:43] LABS: CALCIUM 8.9 mg/dl (8.5-10); CREATININE 0.8 mg/dl (0.55-1.3); POTASSIUM 4.3 mmol/L (3.5-5.1)
--- NOTE | 2019-04-26 09:44 | CON.ID ---
Consult Consult Specialty:: infectious diseases Referred by:: mustapha Reason for Consultation:: dog bite,fall - History of Present Illness Chief Complaint: swelling of the finger of left hand and swelling and fracture of the rt larry History of Present Illness: 89 year old female with no medical history arrived to ED for evaluation after a dog bite to the left index finger yesterday (7pm at night) According to patient it was a stranger's pet dog that bitten her while she was petting him. As per friend, the patient refused to get medical attention as the investment trader informed that the dog was fully vaccinated, however she later in the morning noted the left index finger was erythematous and painful and also endorses tingling to the area. The patient reports being evaluated at urgent care this afternoon, where she had irrigation and wound care, partial sutures placed for approximation, and notes being sent to the ED for IV antibiotics. Patient has not followed up with PMD in several years and cannot recall last tetanus. The patient also complains of right elbow pain and abrasion s/p mechanical trip and fall upon arrival to the ED. The patient reports attempting to step on the curb without her cane, then losing her balance and falling on her right side. Denies LOC or head trauma. Patient denies fever, chills, chest pain, SOB, palpitation, dizziness, weakness , N, V, D, abdominal pain, bladder and bowel problems, leg swelling, No sick contacts or travel. No new changes in medications. 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 Renal/: Yes: Other (Endometriosis) ...: No - Past Surgical History Past Surgical History: Yes: Appendectomy - Alcohol/Substance Use Hx Alcohol Use: Yes (WINE OCCASIONALLY) History of Substance Use: reports: None - Smoking History Smoking history: Never smoked Have you smoked in the past 12 months: No - Social History ADL: Independent History of Recent Travel: No Home Medications - Allergies Allergies/Adverse Reactions: Allergies Allergy/AdvReac Type Severity Reaction Status Date / Time No Known Allergies Allergy Verified 04/25/19 16:03 - Home Medications Home Medications: Ambulatory Orders Aspirin [Aspirin EC] 162 mg PO DAILY 11/09/16 Review of Systems - Review of Systems Constitutional: reports: No Symptoms Eyes: reports: No Symptoms HENT: reports: No Symptoms Neck: reports: No Symptoms Cardiovascular: reports: No Symptoms Respiratory: reports: No Symptoms Gastrointestinal: reports: No Symptoms Genitourinary: reports: No Symptoms Musculoskeletal: reports: No Symptoms Integumentary: reports: Erythema Neurological: reports: No Symptoms Endocrine: reports: No Symptoms Hematology/Lymphatic: reports: No Symptoms Psychiatric: reports: No Symptoms Physical Exam Vital Signs: Vital Signs Temperature 99.0 F 04/26/19 04:00 Pulse Rate 85 04/26/19 04:00 Respiratory Rate 18 04/26/19 04:00 Blood Pressure 132/64 04/26/19 04:00 O2 Sat by Pulse Oximetry (%) 98 04/26/19 04:00 Constitutional: Yes: Well Nourished, Calm, Mild Distress Eyes: Yes: Conjunctiva Clear HENT: Yes: Atraumatic, Normocephalic Neck: Yes: Supple, Trachea Midline Cardiovascular: Yes: Regular Rate and Rhythm Respiratory: Yes: Regular, CTA Bilaterally Gastrointestinal: Yes: Normal Bowel Sounds, Soft Musculoskeletal: Yes: WNL Extremities: Yes: Other (swelling of the rt ext and left index finger) Wound/Incision: Yes: Dressing Dry and Intact Neurological: Yes: Alert, Oriented Psychiatric: Yes: Alert, Oriented Labs: CBC, BMP 04/26/19 07:26 04/26/19 07:26 Imaging - Results Chest X-ray: Report Reviewed, Image Reviewed X-ray: Report Reviewed, Image Reviewed Assessment/Plan Problem List - Problems (1) Cellulitis Code(s): L03.90 - CELLULITIS, UNSPECIFIED (2) Closed olecranon fracture Code(s): S52.023A - DISP FX OF OLECRAN PRO W/O INTARTIC EXTN UNSP ULNA, INIT Qualifiers: Encounter type: initial encounter Laterality: right Qualified Code(s): S52.021A - Displaced fracture of olecranon process without intraarticular extension of right ulna, initial encounter for closed fracture (3) Laceration of finger, left, complicated Code(s): S61.412A - LACERATION WITHOUT FOREIGN BODY OF LEFT HAND, INIT ENCNTR Qualifiers: Encounter type: initial encounter Qualified Code(s): S61.412A - Laceration without foreign body of left hand, initial encounter (4) Status post fall Code(s): Z91.81 - HISTORY OF FALLING 5 dog bite plan continue unasyn support monitor rest as per the team patient received tetanus shot in the er
--- NOTE | 2019-04-26 10:38 | PN ---
Physical Exam: SUBJECTIVE: Patient seen and examined OBJECTIVE: Vital Signs Period Temp Pulse Resp BP Sys/Reddy Pulse Ox Last 24 Hr 97.3 F-99.2 F 83-88 18-20 132-170/64-105 95-98 GENERAL: The patient is awake, alert, and fully oriented, in no acute distress. HEAD: Normal with no signs of trauma. EYES: PERRL, extraocular movements intact, sclera anicteric, conjunctiva clear. No ptosis. ENT: Ears normal, nares patent, oropharynx clear without exudates, moist mucous membranes. NECK: Trachea midline, full range of motion, supple. LUNGS: Breath sounds equal, clear to auscultation bilaterally, no wheezes, no crackles, no accessory muscle use. HEART: Regular rate and rhythm, S1, S2 without murmur, rub or gallop. ABDOMEN: Soft, nontender, nondistended, normoactive bowel sounds, no guarding, no rebound, no hepatosplenomegaly, no masses. EXTREMITIES: 2+ pulses, warm, well-perfused, no edema. NEUROLOGICAL: Cranial nerves II through XII grossly intact. Normal speech, gait not observed. PSYCH: Normal mood, normal affect. SKIN: Warm, dry, normal turgor, no rashes or lesions noted. Index finger sutures in place dressing clean dry and intact. Laboratory Results - last 24 hr 04/25/19 04/25/19 04/25/19 17:35 17:35 17:35 WBC 12.8 H RBC 4.50 Hgb 13.7 Hct 42.0 D MCV 93.3 MCH 30.5 MCHC 32.7 RDW 12.7 Plt Count 223 MPV 9.5 Absolute Neuts (auto) 9.5 Neutrophils % 74.5 Lymphocytes % 14.1 Monocytes % 9.8 Eosinophils % 0.9 Basophils % 0.7 ESR 12 Sodium 136 Potassium 4.3 Chloride 104 Carbon Dioxide 21 Anion Gap 11 BUN 21.0 H Creatinine 0.8 Est GFR (CKD-EPI)AfAm 75.76 Est GFR (CKD-EPI)NonAf 65.36 Random Glucose 100 Calcium 9.3 Total Bilirubin 0.7 AST 20 ALT 12 L Alkaline Phosphatase 101 C-Reactive Protein 1.4 H Total Protein 7.6 Albumin 4.1 04/26/19 04/26/19 07:26 07:26 WBC 8.1 RBC 3.69 Hgb 11.9 Hct 34.8 D MCV 94.4 MCH 32.3 MCHC 34.3 RDW 12.9 Plt Count 204 MPV 9.3 Absolute Neuts (auto) Neutrophils % Lymphocytes % Monocytes % Eosinophils % Basophils % ESR Sodium 138 Potassium 4.3 Chloride 107 Carbon Dioxide 23 Anion Gap 8 BUN 15.0 Creatinine 0.8 Est GFR (CKD-EPI)AfAm 75.76 Est GFR (CKD-EPI)NonAf 65.36 Random Glucose 101 Calcium 8.9 Total Bilirubin AST ALT Alkaline Phosphatase C-Reactive Protein Total Protein Albumin Active Medications Generic Name Dose Route Start Last Admin Trade Name Freq PRN Reason Stop Dose Admin Acetaminophen 650 mg 04/26/19 02:28 04/26/19 02:40 Tylenol - PO 650 mg Q6H PRN Administration PAIN LEVEL 1-5 Heparin Sodium (Porcine) 5,000 unit 04/25/19 22:00 04/26/19 06:27 Heparin - SQ 5,000 unit TID JASSON Administration Sodium Chloride 1,000 mls @ 50 mls/hr 04/25/19 20:45 04/25/19 21:07 Normal Saline - IV 04/26/19 20:36 50 mls/hr ASDIR JASSON Administration Ampicillin Sodium/Sulbactam 100 mls @ 200 mls/hr 04/25/19 21:00 04/26/19 08: 06 Sodium 3 gm/ Sodium Chloride IVPB 200 mls/hr Q6H-IV JASSON Administration ASSESSMENT/PLAN: 89 year old female with no medical history admitted after a dog bite to the left index finger yesterday and s/p fall outside of the ED which resulted in right olecranon fracture. Cellulitis /Left index finger laceration - s/p wound care, and finger splint applied in ED - tentanus given, s/p IV Unasyn given x1 in ED - ID Following- Dr. Duong - On Unasyn - continue tylenol po PRn q6 hours for pain - follow up wound care Left elbow with acute right olecranon fracture - s/p splint in ED - maintain splint in place, monitor circulation - Ortho Consult- Sumanth Hand Surgeon Consult-Elias - pain management - elevate extremity FEN -1 Liter 0.9%NS @50ml -Will monitor labs and Replenish electrolytes as need -Regular diet DVT Prophylaxis -SCD, TEDS -Hep subq BID Dispo - Still requires inpatient. Full Code Visit type - Emergency Visit Emergency Visit: Yes ED Registration Date: 04/25/19 Care time: The patient presented to the Emergency Department on the above date and was hospitalized for further evaluation of their emergent condition. - New Patient This patient is new to me today: Yes Date on this admission: 04/26/19 - Critical Care Critical Care patient: No - Discharge Referral Referred to [facility] No
--- NOTE | 2019-04-26 18:14 | PN ---
Progress Note (short form) - Note Progress Note: Pt seen and examined. She is an 89 year old right hand dominant female 1 day s/ p fall secondary to a dog attack. She is otherwise healthy. She sustained a direct injury to her right elbow, and an open laceration to her left index finger from the dog bite. She first had her left index finger wound washed out in an Urgent Care center, and then again in the ER here last night. She states it feels much better after being on IV antibiotics. AVSS PE A + O x 3 Left index finger - resolving signs of infection, less erythema, no drainage (there was pus evacuated in the ER as per the pt). No signs of tracking erythema up the forearm, as there was in the ER as per the ER doctor. + volar and dorsal dog bite lacerations well sutured, closed with areas for drainage. Grossly NVI, good sensation Good FDS, FDP and EDC motion and function. 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 Rec Con't IV antibiotics, on Unasyn, until the left arm infection is gone for atleast 24 hours. Elevate both hands We discussed risks, benefits of surgery for the right elbow. I am recommending, and she is choosing to undergo an ORIF of the right olecranon when the patient no longer has an active infection of the left arm. Surgery likely Sunday, after another 48 hours of IV antibiotics. We will monitor the clinical situation.
[2019-04-27 02:04] LABS: URINE APPEARANCE CLEAR; URINE BILIRUBIN NEGATIVE (NEGATIVE); URINE COLOR YELLOW; URINE GLUCOSE (UA) NEGATIVE (NEGATIVE); URINE KETONE NEGATIVE (NEGATIVE); URINE LEUK ESTERASE NEGATIVE (NEGATIVE); URINE NITRITE NEGATIVE (NEGATIVE); URINE PROTEIN NEGATIVE (NEGATIVE); URINE UROBILINOGEN 0.2 mg/dL (0.2-1.0)
[2019-04-27] MEDS ORDERED: AMPICILLIN NA/SULBACTAM NA 3 GM VIAL ONE ×4 (03:01→21:20)
[2019-04-27] MEDS ORDERED: SODIUM CHLORIDE 100 ML IVPB ONE ×4 (03:02→21:20)
[2019-04-27] MEDS: AMPICILLIN NA/SULBACTAM NA 3 GM in SODIUM CHLORIDE 100 ML IVPB SCH ×4 (03:07→21:23)
[2019-04-27] MEDS: HEPARIN NA (PORCINE) 5,000 UNITS/ML 1ML VIAL SQ SCH ×3 (06:49→21:23)
[2019-04-27 09:13] LABS: BASO % 0.7 % (0-2.0); EOS % 0.9 % (0-4.5); HEMATOCRIT 33.3 % (32.4-45.2); HEMOGLOBIN 11.1 GM/dl (10.7-15.3); MCH 31.6 pg (25.7-33.7); MCHC 33.5 g/dl (32.0-36.0); MEAN CELL VOLUME 94.5 fl (80-96); MEAN PLT VOLUME 9.5 fl (7.5-11.1); MONO % 9.9 % (3.8-10.2); NEUT % 68.5 % (42.8-82.8); PLATELET COUNT 182 K/MM3 (134-434); RBC 3.52 M/mm3 (3.60-5.2); RDW 12.6 % (11.6-15.6); WHITE BLOOD COUNT 8.2 K/mm3 (4.0-10.8)
[2019-04-27 10:08] LABS: ALBUMIN 3.1 g/dl (3.4-5.0); BILIRUBIN,TOTAL 0.8 mg/dl (0.2-1); CALCIUM 8.6 mg/dl (8.5-10); CREATININE 0.6 mg/dl (0.55-1.3); TOT PROT 5.9 g/dl (6.4-8.2)
--- NOTE | 2019-04-27 11:55 | PN ---
Physical Exam: SUBJECTIVE: Patient seen and examined, pt sitting in recliner, denies pain right arm elevated OBJECTIVE: Vital Signs Period Temp Pulse Resp BP Sys/Reddy Pulse Ox Last 24 Hr 98.0 F-98.9 F 63-97 18-20 130-154/58-80 96-99 GENERAL: The patient is awake, alert, and fully oriented, in no acute distress. HEAD: Normal with no signs of trauma. EYES: PERRL, extraocular movements intact, sclera anicteric, conjunctiva clear. No ptosis. ENT: Ears normal, nares patent, oropharynx clear without exudates, moist mucous membranes. NECK: Trachea midline, full range of motion, supple. LUNGS: Breath sounds equal, clear to auscultation bilaterally, no wheezes, no crackles, no accessory muscle use. HEART: Regular rate and rhythm, S1, S2 without murmur, rub or gallop. ABDOMEN: Soft, nontender, nondistended, normoactive bowel sounds, no guarding, no rebound, no hepatosplenomegaly, no masses. EXTREMITIES: 2+ pulses, warm, well-perfused, no edema. NEUROLOGICAL: Cranial nerves II through XII grossly intact. Normal speech, gait not observed. PSYCH: Normal mood, normal affect. SKIN: Warm, dry, normal turgor, no rashes or lesions noted Laboratory Results - last 24 hr 04/27/19 04/27/19 04/27/19 00:50 00:50 06:20 WBC 8.2 RBC 3.52 L Hgb 11.1 Hct 33.3 MCV 94.5 MCH 31.6 MCHC 33.5 RDW 12.6 Plt Count 182 MPV 9.5 Absolute Neuts (auto) 5.6 Neutrophils % 68.5 Lymphocytes % 20.0 Monocytes % 9.9 Eosinophils % 0.9 Basophils % 0.7 Sodium Potassium Chloride Carbon Dioxide Anion Gap BUN Creatinine Est GFR (CKD-EPI)AfAm Est GFR (CKD-EPI)NonAf Random Glucose Calcium Total Bilirubin AST ALT Alkaline Phosphatase Total Protein Albumin Urine Color Cancelled Yellow Urine Appearance Cancelled Clear Urine pH Cancelled 5.0 Ur Specific [place] 1.014 Urine Protein Cancelled Negative Urine Glucose (UA) Cancelled Negative Urine Ketones Cancelled Negative Urine Blood Cancelled Negative Urine Nitrite Cancelled Negative Urine Bilirubin Cancelled Negative Urine Urobilinogen Cancelled 0.2 Ur Leukocyte Esterase Cancelled Negative 04/27/19 06:30 WBC RBC Hgb Hct MCV MCH MCHC RDW Plt Count MPV Absolute Neuts (auto) Neutrophils % Lymphocytes % Monocytes % Eosinophils % Basophils % Sodium 138 Potassium 4.0 Chloride 107 Carbon Dioxide 22 Anion Gap 9 BUN 14.0 Creatinine 0.6 Est GFR (CKD-EPI)AfAm 93.66 Est GFR (CKD-EPI)NonAf 80.81 Random Glucose 91 Calcium 8.6 Total Bilirubin 0.8 AST 16 ALT 10 L Alkaline Phosphatase 79 D Total Protein 5.9 L Albumin 3.1 L Urine Color Urine Appearance Urine pH Ur Specific [place] Urine Protein Urine Glucose (UA) Urine Ketones Urine Blood Urine Nitrite Urine Bilirubin Urine Urobilinogen Ur Leukocyte Esterase Active Medications Generic Name Dose Route Start Last Admin Trade Name Freq PRN Reason Stop Dose Admin Acetaminophen 650 mg 04/26/19 02:28 04/26/19 02:40 Tylenol - PO 650 mg Q6H PRN Administration PAIN LEVEL 1-5 Heparin Sodium (Porcine) 5,000 unit 04/25/19 22:00 04/27/19 06:49 Heparin - SQ 5,000 unit TID JASSON Administration Ampicillin Sodium/Sulbactam 100 mls @ 200 mls/hr 04/25/19 21:00 04/27/19 08: 30 Sodium 3 gm/ Sodium Chloride IVPB 200 mls/hr Q6H-IV JASSON Administration ASSESSMENT/PLAN: 89 year old female with no medical history admitted after a dog bite to the left index finger yesterday and s/p fall outside of the ED which resulted in right olecranon fracture. Cellulitis /Left index finger laceration - s/p wound care, and finger splint applied in ED - tentanus given - ID Following- Dr. Duong - c/w Unasyn - continue tylenol po PRn q6 hours for pain - follow up wound care Left elbow with acute right olecranon fracture - s/p splint in ED - maintain splint in place, monitor circulation - Ortho Consult- Sumanth-tentative plan for sx Tues Hand Surgeon Consult-Elias - pain management - elevate extremity FEN -Will monitor labs and Replenish electrolytes as need -Regular diet DVT Prophylaxis -SCD, TEDS -Hep subq BID Dispo - Still requires inpatient. Full Code Visit type - Emergency Visit Emergency Visit: Yes ED Registration Date: 04/25/19 Care time: The patient presented to the Emergency Department on the above date and was hospitalized for further evaluation of their emergent condition. - New Patient This patient is new to me today: Yes Date on this admission: 04/27/19 - Critical Care Critical Care patient: No
--- NOTE | 2019-04-27 13:13 | PN ---
Progress Note, Physician History of Present Illness: stable no new issues - Current Medication List Current Medications: Active Medications Acetaminophen (Tylenol -) 650 mg PO Q6H PRN PRN Reason: PAIN LEVEL 1-5 Last Admin: 04/26/19 02:40 Dose: 650 mg Heparin Sodium (Porcine) (Heparin -) 5,000 unit SQ TID JASSON Last Admin: 04/27/19 06:49 Dose: 5,000 unit Ampicillin Sodium/Sulbactam (Sodium 3 gm/ Sodium Chloride) 100 mls @ 200 mls/ hr IVPB Q6H-IV JASSON Last Admin: 04/27/19 08:30 Dose: 200 mls/hr - Objective Vital Signs: Vital Signs Temperature 98.0 F 04/27/19 10:00 Pulse Rate 74 04/27/19 10:00 Respiratory Rate 20 04/27/19 10:00 Blood Pressure 131/78 04/27/19 10:00 O2 Sat by Pulse Oximetry (%) 96 04/27/19 06:00 Constitutional: Yes: No Distress, Calm Cardiovascular: Yes: S1, S2 Respiratory: Yes: Regular, CTA Bilaterally Gastrointestinal: Yes: Normal Bowel Sounds, Soft Musculoskeletal: Yes: WNL Extremities: Yes: Other Wound/Incision: Yes: Dressing Dry and Intact Neurological: Yes: Alert, Oriented Psychiatric: Yes: Alert, Oriented Labs: CBC, BMP 04/27/19 06:20 04/27/19 06:30 Assessment/Plan Problem List - Problems (1) Cellulitis Code(s): L03.90 - CELLULITIS, UNSPECIFIED (2) Closed olecranon fracture Code(s): S52.023A - DISP FX OF OLECRAN PRO W/O INTARTIC EXTN UNSP ULNA, INIT Qualifiers: Encounter type: initial encounter Laterality: right Qualified Code(s): S52.021A - Displaced fracture of olecranon process without intraarticular extension of right ulna, initial encounter for closed fracture (3) Laceration of finger, left, complicated Code(s): S61.412A - LACERATION WITHOUT FOREIGN BODY OF LEFT HAND, INIT ENCNTR Qualifiers: Encounter type: initial encounter Qualified Code(s): S61.412A - Laceration without foreign body of left hand, initial encounter (4) Status post fall Code(s): Z91.81 - HISTORY OF FALLING 5 dog bite plan continue unasyn support monitor rest as per the team
[2019-04-27] MEDS: ACETAMINOPHEN 325 MG TABLET (FP) PO PRN ×2 (14:00→21:23)
[2019-04-28] MEDS: AMPICILLIN NA/SULBACTAM NA 3 GM in SODIUM CHLORIDE 100 ML IVPB SCH ×4 (03:20→21:25)
[2019-04-28] MEDS: HEPARIN NA (PORCINE) 5,000 UNITS/ML 1ML VIAL SQ SCH ×2 (06:21→15:55)
--- NOTE | 2019-04-28 07:33 | PN ---
Physical Exam: SUBJECTIVE: Patient seen and examined; pain is controlled. Neurovascularly intact. OR tomorrow per surgical services. No complaints. Stable without any issues. Has no new complaints today. She tells me that the swelling as whole in the R-arm is unchanged. Dressing over bite is CDI. Discussed with ID; will continue unasyn. No side effects to the drug noted. 10 sys ROS done and negative aside from HPI OBJECTIVE: Vital Signs Period Temp Pulse Resp BP Sys/Reddy Pulse Ox Last 24 Hr 97.6 F-98.9 F 62-93 16-20 117-143/52-81 97-100 GENERAL: The patient is awake, alert, and fully oriented, in no acute distress. HEAD: Normal with no signs of trauma. EYES: PERRL, extraocular movements intact, sclera anicteric, conjunctiva clear. No ptosis. ENT: Ears normal, nares patent, oropharynx clear without exudates, moist mucous membranes. NECK: Trachea midline, full range of motion, supple. LUNGS: Breath sounds equal, clear to auscultation bilaterally, no wheezes, no crackles, no accessory muscle use. HEART: Regular rate and rhythm, S1, S2 without murmur, rub or gallop. ABDOMEN: Soft, nontender, nondistended EXTREMITIES: 2+ pulses, warm, well-perfused, unchanged upper extremity edema per patient. NEUROLOGICAL: Cranial nerves II through XII grossly intact. Normal speech PSYCH: Normal mood, normal affect. SKIN: Warm, dry, normal turgor, no rashes or lesions noted. bandaging c/d/i over the bite. Laboratory Results - last 24 hr 04/27/19 04/27/19 06:20 06:30 WBC 8.2 RBC 3.52 L Hgb 11.1 Hct 33.3 MCV 94.5 MCH 31.6 MCHC 33.5 RDW 12.6 Plt Count 182 MPV 9.5 Absolute Neuts (auto) 5.6 Neutrophils % 68.5 Lymphocytes % 20.0 Monocytes % 9.9 Eosinophils % 0.9 Basophils % 0.7 Sodium 138 Potassium 4.0 Chloride 107 Carbon Dioxide 22 Anion Gap 9 BUN 14.0 Creatinine 0.6 Est GFR (CKD-EPI)AfAm 93.66 Est GFR (CKD-EPI)NonAf 80.81 Random Glucose 91 Calcium 8.6 Total Bilirubin 0.8 AST 16 ALT 10 L Alkaline Phosphatase 79 D Total Protein 5.9 L Albumin 3.1 L Active Medications Generic Name Dose Route Start Last Admin Trade Name Freq PRN Reason Stop Dose Admin Acetaminophen 650 mg 04/26/19 02:28 04/27/19 21:23 Tylenol - PO 650 mg Q6H PRN Administration PAIN LEVEL 1-5 Heparin Sodium (Porcine) 5,000 unit 04/25/19 22:00 04/28/19 06:21 Heparin - SQ 5,000 unit TID JASSON Administration Ampicillin Sodium/Sulbactam 100 mls @ 200 mls/hr 04/25/19 21:00 04/28/19 03: 20 Sodium 3 gm/ Sodium Chloride IVPB 200 mls/hr Q6H-IV JASSON Administration Microbiology 04/25/19 17:35 Blood Culture - Preliminary Blood - Peripheral Venous NO GROWTH OBTAINED AFTER 72 HOURS, INCUBATION TO CONTINUE FOR 2 DAYS. 04/25/19 17:35 Blood Culture - Preliminary Blood - Peripheral Venous NO GROWTH OBTAINED AFTER 72 HOURS, INCUBATION TO CONTINUE FOR 2 DAYS. Admission imaging reviewed. ASSESSMENT/PLAN: Presents for fracture and dog bite; she is stable today with controlled pain and has no further complaints. Plan to continue to monitor on the floor with ID and surgical consultation. Continue with unasyn, NPO at [place] for OR. Checking labs, coags, ensure T&S up to date. Left elbow with acute right olecranon fracture Cellulitis secondary to dog bite Mechanical Fall ASA use-held appropriately preop. Atypical dose. Problems include: Visit type - Emergency Visit Emergency Visit: Yes ED Registration Date: 04/25/19 Care time: The patient presented to the Emergency Department on the above date and was hospitalized for further evaluation of their emergent condition. - New Patient This patient is new to me today: No - Critical Care Critical Care patient: No
[2019-04-28] MEDS ORDERED: PT OWN MED DRAWER 7, Y5N ONE ×2 (08:44→15:49)
--- NOTE | 2019-04-28 08:45 | PN ---
Progress Note (short form) - Note Progress Note: Ortho Pt seen and examined s/p left index finger dog bite, right displaced olecranon fx. Selected Entries 04/28/19 06:00 Temperature 97.6 F Pulse Rate 62 Respiratory 16 Rate Blood Pressure 136/81 Laboratory Tests 04/27/19 06:20 WBC 8.2 Hgb 11.1 Hct 33.3 Plt Count 182 left index- + splint, dressing c/d/i, no erythema, decr swelling, nvi right elbow- splint intact, + swelling, nvi a/p continue IV abx OR tomorrow for right olecranon ORIF NPO after midnight surgical clearance d/w Dr. Julio
[2019-04-28] MEDS: ACETAMINOPHEN 325 MG TABLET (FP) PO PRN (09:50)
--- NOTE | 2019-04-28 11:59 | EKG ---
Test Reason : Blood Pressure : / mmHG Vent. Rate : 092 BPM Atrial Rate : 098 BPM P-R Int : 000 ms QRS Dur : 088 ms QT Int : 370 ms P-R-T Axes : 000 -35 -23 degrees QTc Int : 457 ms ATRIAL FIBRILLATION LEFT AXIS DEVIATION MODERATE VOLTAGE CRITERIA FOR LVH, MAY BE NORMAL VARIANT NONSPECIFIC ST ABNORMALITY ABNORMAL ECG WHEN COMPARED WITH ECG OF 09-NOV-2016 11:35, ATRIAL FIBRILLATION HAS REPLACED SINUS RHYTHM T WAVE VARIATION Confirmed by DENTON ANDERSON MD ([id number]) on 04/28/2019 11:58:49 AM Referred By: NORMAN ANGELES Confirmed By:DENTON ANDERSON MD
[2019-04-28 12:03] LABS: BASO % 0.8 % (0-2.0); EOS % 1.5 % (0-4.5); HEMATOCRIT 34.3 % (32.4-45.2); HEMOGLOBIN 11.4 GM/dl (10.7-15.3); LYMPH % 18.5 % (8-40); MCH 31.2 pg (25.7-33.7); MCHC 33.3 g/dl (32.0-36.0); MEAN CELL VOLUME 93.9 fl (80-96); MEAN PLT VOLUME 9.4 fl (7.5-11.1); MONO % 10.7 % (3.8-10.2); NEUT % 68.5 % (42.8-82.8); PLATELET COUNT 212 K/MM3 (134-434); RBC 3.65 M/mm3 (3.60-5.2); RDW 12.5 % (11.6-15.6); WHITE BLOOD COUNT 7.8 K/mm3 (4.0-10.8)
[2019-04-28 12:14] LABS: INR 1.27 (0.82-1.09); PROTHROMBIN TIME (PATIENT) 14.1 SEC (10.2-13.0)
[2019-04-28 12:17] LABS: BILIRUBIN,TOTAL 0.9 mg/dl (0.2-1); CALCIUM 8.3 mg/dl (8.5-10); CREATININE 0.8 mg/dl (0.55-1.3); MAGNESIUM 1.7 mg/dL (1.8-2.4); POTASSIUM 3.8 mmol/L (3.5-5.1); TOT PROT 5.9 g/dl (6.4-8.2)
--- NOTE | 2019-04-28 14:22 | PN ---
Progress Note, Physician History of Present Illness: stable no new issues plan for surgery - Current Medication List Current Medications: Active Medications Acetaminophen (Tylenol -) 650 mg PO Q6H PRN PRN Reason: PAIN LEVEL 1-5 Last Admin: 04/28/19 09:50 Dose: 650 mg Heparin Sodium (Porcine) (Heparin -) 5,000 unit SQ TID JASSON Last Admin: 04/28/19 06:21 Dose: 5,000 unit Ampicillin Sodium/Sulbactam (Sodium 3 gm/ Sodium Chloride) 100 mls @ 200 mls/ hr IVPB Q6H-IV JASSON Last Admin: 04/28/19 09:28 Dose: 200 mls/hr - Objective Vital Signs: Vital Signs Temperature 98.8 F 04/28/19 13:54 Pulse Rate 97 H 04/28/19 13:54 Respiratory Rate 18 04/28/19 13:54 Blood Pressure 126/56 L 04/28/19 13:54 O2 Sat by Pulse Oximetry (%) 99 04/28/19 13:54 Constitutional: Yes: No Distress, Calm Cardiovascular: Yes: S1, S2 Respiratory: Yes: Regular, CTA Bilaterally Gastrointestinal: Yes: Normal Bowel Sounds, Soft Musculoskeletal: Yes: WNL Extremities: Yes: WNL Neurological: Yes: Alert, Oriented Psychiatric: Yes: Alert, Oriented Labs: CBC, BMP 04/28/19 11:34 04/28/19 11:34 INR, PTT INR 1.27 (0.82-1.09) H 04/28/19 11:34 Assessment/Plan Problem List - Problems (1) Cellulitis Code(s): L03.90 - CELLULITIS, UNSPECIFIED (2) Closed olecranon fracture Code(s): S52.023A - DISP FX OF OLECRAN PRO W/O INTARTIC EXTN UNSP ULNA, INIT Qualifiers: Encounter type: initial encounter Laterality: right Qualified Code(s): S52.021A - Displaced fracture of olecranon process without intraarticular extension of right ulna, initial encounter for closed fracture (3) Laceration of finger, left, complicated Code(s): S61.412A - LACERATION WITHOUT FOREIGN BODY OF LEFT HAND, INIT ENCNTR Qualifiers: Encounter type: initial encounter Qualified Code(s): S61.412A - Laceration without foreign body of left hand, initial encounter (4) Status post fall Code(s): Z91.81 - HISTORY OF FALLING 5 dog bite plan continue unasyn support monitor rest as per the team plan for surgery tomorrow
[2019-04-29] MEDS: AMPICILLIN NA/SULBACTAM NA 3 GM in SODIUM CHLORIDE 100 ML IVPB SCH ×3 (02:55→21:37)
[2019-04-29 07:24] LABS: BASO % 0.6 % (0-2.0); EOS % 3.2 % (0-4.5); HEMATOCRIT 33.7 % (32.4-45.2); HEMOGLOBIN 11.2 GM/dl (10.7-15.3); LYMPH % 24.9 % (8-40); MCH 31.1 pg (25.7-33.7); MCHC 33.3 g/dl (32.0-36.0); MEAN CELL VOLUME 93.4 fl (80-96); NEUT % 61.3 % (42.8-82.8); PLATELET COUNT 226 K/MM3 (134-434); RBC 3.61 M/mm3 (3.60-5.2); RDW 12.6 % (11.6-15.6); WHITE BLOOD COUNT 6.9 K/mm3 (4.0-10.8)
[2019-04-29 07:45] LABS: INR 1.18 (0.82-1.09); PROTHROMBIN TIME (PATIENT) 13.2 SEC (10.2-13.0)
[2019-04-29 07:59] LABS: ALBUMIN 2.9 g/dl (3.4-5.0); BILIRUBIN,TOTAL 0.7 mg/dl (0.2-1); CALCIUM 8.5 mg/dl (8.5-10); CREATININE 0.8 mg/dl (0.55-1.3); MAGNESIUM 1.7 mg/dL (1.8-2.4); POTASSIUM 3.7 mmol/L (3.5-5.1); TOT PROT 6.1 g/dl (6.4-8.2)
[2019-04-29] MEDS ORDERED: SODIUM CHLORIDE 1,000 ML IV SCH (08:00)
[2019-04-29] MEDS ORDERED: AMPICILLIN NA/SULBACTAM NA 3 GM VIAL ONE ×3 (08:40→21:18)
[2019-04-29] MEDS ORDERED: SODIUM CHLORIDE 100 ML IVPB ONE ×3 (08:41→21:18)
--- NOTE | 2019-04-29 09:03 | PN ---
Physical Exam: SUBJECTIVE: Patient seen and examined oob to chair. Discussed finding of afib. This is a new diagnosis. A few years ago she was told she had palpitations that lasted for a week. Since then she has taken a daily low dose aspirin. Denies chest pain, palpitations, dizziness, lightheadedness, orthopnea, lower extremity edema. Admits to episodes of shortness of breath on exertion over the past few months. 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 ECG:afib with RVR @ 108bpm OBJECTIVE: Vital Signs Period Temp Pulse Resp BP Sys/Reddy Pulse Ox Last 24 Hr 97.8 F-98.8 F 54-99 16-18 97-154/56-70 94-99 GENERAL: The patient is awake, alert, and fully oriented, in no acute distress. LUNGS: CTA HEART: Irregular, S1, S2 ABDOMEN: Soft, nontender, nondistended LUE: Index finger in splint with sterile dressing c/d/i RUE: soft dressing immobilization, swelling right hand, fingers warm, well- perfused, good cap refill, flex/extend, sensory intact NEUROLOGICAL: Cranial nerves II through XII grossly intact. Laboratory Results - last 24 hr 04/28/19 04/28/19 04/28/19 11:34 11:34 11:34 WBC 7.8 RBC 3.65 Hgb 11.4 Hct 34.3 MCV 93.9 MCH 31.2 MCHC 33.3 RDW 12.5 Plt Count 212 MPV 9.4 Absolute Neuts (auto) 5.4 Neutrophils % 68.5 Lymphocytes % 18.5 Monocytes % 10.7 H Eosinophils % 1.5 Basophils % 0.8 PT with INR 14.1 H INR 1.27 H Sodium 136 Potassium 3.8 Chloride 104 Carbon Dioxide 22 Anion Gap 10 BUN 15.0 Creatinine 0.8 Est GFR (CKD-EPI)AfAm 75.76 Est GFR (CKD-EPI)NonAf 65.36 Random Glucose 98 Calcium 8.3 L Magnesium 1.7 L Total Bilirubin 0.9 AST 15 ALT 10 L Alkaline Phosphatase 80 Total Protein 5.9 L Albumin 3.0 L 04/29/19 04/29/19 04/29/19 07:08 07:08 07:08 WBC 6.9 RBC 3.61 Hgb 11.2 Hct 33.7 MCV 93.4 MCH 31.1 MCHC 33.3 RDW 12.6 Plt Count 226 MPV 9.0 Absolute Neuts (auto) 4.3 Neutrophils % 61.3 Lymphocytes % 24.9 Monocytes % 10.0 Eosinophils % 3.2 Basophils % 0.6 PT with INR 13.2 H INR 1.18 Sodium 137 Potassium 3.7 Chloride 109 H Carbon Dioxide 20 L Anion Gap 8 BUN 15.0 Creatinine 0.8 Est GFR (CKD-EPI)AfAm 75.76 Est GFR (CKD-EPI)NonAf 65.36 Random Glucose 100 Calcium 8.5 Magnesium 1.7 L Total Bilirubin 0.7 AST 14 L ALT 9 L Alkaline Phosphatase 81 Total Protein 6.1 L Albumin 2.9 L Current Medications Generic Name Dose Route Start Last Admin Trade Name Freq PRN Reason Stop Dose Admin Acetaminophen 650 mg 04/26/19 02:28 04/28/19 09:50 Tylenol - PO 650 mg Q6H PRN Administration PAIN LEVEL 1-5 Heparin Sodium (Porcine) 1,000 unit 04/29/19 09:06 Heparin - IVPUSH PRN PRN Heparin Heparin Sodium (Porcine) 5,000 unit 04/29/19 09:06 Heparin - IVPUSH PRN PRN Heparin Ampicillin Sodium/Sulbactam 100 mls @ 200 mls/hr 04/25/19 21:00 04/29/19 09: 02 Sodium 3 gm/ Sodium Chloride IVPB 200 mls/hr Q6H-IV JASSON Administration Heparin Sodium/Dextrose 25,000 units in 500 mls @ 19.8 mls/hr 04/29/19 10:15 04/29/19 16:00 Heparin Infusion - IVPB 890 units/hr TITR JASSON 17.8 mls/hr Administration Protocol 990 UNITS/HR Metoprolol Succinate 25 mg 04/29/19 13:15 04/29/19 14:07 Toprol Xl - PO 25 mg DAILY JASSON Administration ASSESSMENT/PLAN 89 year-old female with no reported significant PMH but who has not followed with a health are provider in over 30 years. Initially came to the hospital for an infected dog bite to the left index finger. Fell outside the ED and fractured the right olecranon. Then found to be in newly diagnosed atrial fibrillation and aortic stenosis. Newly diagnosed atrial fibrillation with RVR Newly diagnosed moderate aortic stenosis --04/29 Echo: in afib with RVR >100bpm during exam; normal LV, EF 55%; normal RV; mild MR; mild TR; moderate , BOBY 0.9cm2 --started on Toprol XL 25mg daily --started on heparin drip, PTT goal 50-70 --telemetry monitoring --cardiology following Cellulitis secondary to dog bite left index finger --wound initially treated at urgent care, pus cleaned from wound, referred to [place] [facility] --in ED, tracking cellulitis seen, started on Unasyn (today day #4) --afebrile, leukocytosis seen on admission resolved --seen and evaluated by surgery --ID following Acute right olecranon fracture --04/25 xray: acute right olecranon fracture --plan was for ORIF today but surgery postponed due to diagnosis of afib r/o Left wrist impaction fracture --04/25 xray: deformity of the left distal radius with questionable impaction fracture, wrist imaging pending FEN Fluids: PO intake adequate Electrolytes: replete as indicated Nutrition: regular diet; NPO after midnight DVT prophylaxis: on heparin drip Physical therapy Dispo: continues to require inpatient care. Full code. Visit type - Emergency Visit Emergency Visit: Yes ED Registration Date: 04/25/19 Care time: The patient presented to the Emergency Department on the above date and was hospitalized for further evaluation of their emergent condition. - New Patient This patient is new to me today: Yes Date on this admission: 04/29/19 - Critical Care Critical Care patient: No
[2019-04-29] MEDS ORDERED: HEPARIN NA (PORCINE) 5,000 UNITS/ML 1ML VIAL IVPUSH PRN ×2 (09:06)
[2019-04-29] MEDS ORDERED: HEPARIN INFUSION - 25,000 UNITS/500 ML INFUS.BAG IVPB SCH ×2 (09:15→09:18)
[2019-04-29] MEDS ORDERED: HEPARIN NA (PORCINE) 5,000 UNITS/ML 1ML VIAL IVPUSH ONE ×2 (09:16→10:30)
--- NOTE | 2019-04-29 09:23 | EKG ---
Test Reason : Blood Pressure : / mmHG Vent. Rate : 108 BPM Atrial Rate : 131 BPM P-R Int : 000 ms QRS Dur : 088 ms QT Int : 356 ms P-R-T Axes : 000 -31 002 degrees QTc Int : 477 ms ATRIAL FIBRILLATION WITH RAPID VENTRICULAR RESPONSE LEFT AXIS DEVIATION MINIMAL VOLTAGE CRITERIA FOR LVH, MAY BE NORMAL VARIANT CANNOT RULE OUT ANTERIOR INFARCT , AGE UNDETERMINED ABNORMAL ECG WHEN COMPARED WITH ECG OF 25-APR-2019 16:43, NO SIGNIFICANT CHANGE WAS FOUND Confirmed by MD Hien, Jese ([id number]) on 04/29/2019 9:23:45 AM Referred By: ALY MURPHY Confirmed By:Jese Stanford MD
--- NOTE | 2019-04-29 12:13 | CON.CARD ---
Consult Consult Specialty:: Cardiology Referred by:: Medicine Reason for Consultation:: afib, preop - History of Present Illness Chief Complaint: fall, dog bite History of Present Illness: 89F no PMH (doesn't go to doctors) p/w dog bite to L index finger day prior to admission, came to ER for finger swelling. When coming to the ER she tripped and fell, no dizziness, loss of consciousness, has elbow pain. On abx for dog bite and had planned for surgery for elbow fracture today. Noted to have afib on EKG. No prior cardiac history or testing. no chest pain, palps, dizziness, dyspnea. 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: Yes: CVA Renal/: Yes: Other (Endometriosis) ...: No - Past Surgical History Past Surgical History: Yes: Appendectomy - Alcohol/Substance Use Hx Alcohol Use: Yes (WINE OCCASIONALLY) History of Substance Use: reports: None - Smoking History Smoking history: Never smoked Have you smoked in the past 12 months: No - Social History ADL: Independent History of Recent Travel: No Home Medications - Allergies Allergies/Adverse Reactions: Allergies Allergy/AdvReac Type Severity Reaction Status Date / Time No Known Allergies Allergy Verified 04/25/19 16:03 - Home Medications Home Medications: Ambulatory Orders Aspirin [Aspirin EC] 162 mg PO DAILY 11/09/16 Family Medical History Family History: Unremarkable Review of Systems - Review of Systems Constitutional: reports: No Symptoms Eyes: reports: No Symptoms HENT: reports: No Symptoms Neck: reports: No Symptoms Cardiovascular: reports: No Symptoms Respiratory: reports: No Symptoms Gastrointestinal: reports: No Symptoms Genitourinary: reports: No Symptoms Musculoskeletal: reports: No Symptoms Integumentary: reports: No Symptoms Neurological: reports: No Symptoms Endocrine: reports: No Symptoms Hematology/Lymphatic: reports: No Symptoms Psychiatric: reports: No Symptoms Vital Signs: Vital Signs Temperature 97.9 F 04/29/19 06:00 Pulse Rate 54 L 04/29/19 06:00 Respiratory Rate 16 04/29/19 08:11 Blood Pressure 154/58 L 04/29/19 06:00 O2 Sat by Pulse Oximetry (%) 95 04/29/19 08:11 Constitutional: Yes: Well Nourished, No Distress, Calm Eyes: Yes: Conjunctiva Clear, EOM Intact HENT: Yes: Atraumatic, Normocephalic Neck: Yes: Supple, Trachea Midline Respiratory: Yes: Regular, CTA Bilaterally Gastrointestinal: Yes: Normal Bowel Sounds, Soft Cardiovascular: Yes: Pulse Irregular JVD: No PMI: Non-Displaced Heart Sounds: Yes: S1, S2 Murmur: Yes: Grade 3 Extremities: Yes: Other (L hand with bandages, R elbow with bandages). No: Cold Edema: No Integumentary: No: Jaundice Neurological: Yes: Alert, Oriented Psychiatric: No: Agitated - Other Data Labs, Other Data: CBC, BMP 04/29/19 07:08 04/29/19 07:08 INR, PTT INR 1.18 (0.82-1.09) 04/29/19 07:08 Assessment/Plan EKG atrial fibrillation, no ischemic changes CXR: no acute process atrial fibrillation - no prior cardiac workup, had not been seeing doctors - start metoprolol succinate 25 mg daily - AONGB2Dsdi warrants AC - on heparin gtt perioperatively, can transition to NOAC when feasible post op - echo pending preoperative evaluation, elbow fx - planned ORIF for elbow fx - she is currently asymptomatic, euvolemic - echo pending - if benign findings on echo, no further CV testing prior to OR fall - no dizziness, LOC - likely mechanical - PT eval after surgery murmur - echo dog bite - manage per ID, primary
--- NOTE | 2019-04-29 13:30 | PN ---
Progress Note, Physician History of Present Illness: stable now in afib awaiting clearance for surgery - Current Medication List Current Medications: Active Medications Acetaminophen (Tylenol -) 650 mg PO Q6H PRN PRN Reason: PAIN LEVEL 1-5 Last Admin: 04/28/19 09:50 Dose: 650 mg Heparin Sodium (Porcine) (Heparin -) 1,000 unit IVPUSH PRN PRN PRN Reason: Heparin Heparin Sodium (Porcine) (Heparin -) 5,000 unit IVPUSH PRN PRN PRN Reason: Heparin Ampicillin Sodium/Sulbactam (Sodium 3 gm/ Sodium Chloride) 100 mls @ 200 mls/ hr IVPB Q6H-IV JASSON Last Admin: 04/29/19 09:02 Dose: 200 mls/hr Heparin Sodium/Dextrose (Heparin Infusion -) 25,000 units in 500 mls @ 19.8 mls /hr IVPB TITR JASSON; Protocol Metoprolol Succinate (Toprol Xl -) 25 mg PO DAILY JASSON - Objective Vital Signs: Vital Signs Temperature 97.9 F 04/29/19 06:00 Pulse Rate 54 L 04/29/19 06:00 Respiratory Rate 16 04/29/19 08:11 Blood Pressure 154/58 L 04/29/19 06:00 O2 Sat by Pulse Oximetry (%) 95 04/29/19 08:11 Constitutional: Yes: No Distress, Calm Cardiovascular: Yes: Pulse Irregular Respiratory: Yes: Regular, CTA Bilaterally Gastrointestinal: Yes: Normal Bowel Sounds, Soft Musculoskeletal: Yes: WNL Extremities: Yes: Other Wound/Incision: Yes: Dressing Dry and Intact Neurological: Yes: Alert, Oriented Psychiatric: Yes: Alert, Oriented Labs: CBC, BMP 04/29/19 07:08 04/29/19 07:08 INR, PTT INR 1.18 (0.82-1.09) 04/29/19 07:08 Assessment/Plan Problem List - Problems (1) Cellulitis Code(s): L03.90 - CELLULITIS, UNSPECIFIED (2) Closed olecranon fracture Code(s): S52.023A - DISP FX OF OLECRAN PRO W/O INTARTIC EXTN UNSP ULNA, INIT Qualifiers: Encounter type: initial encounter Laterality: right Qualified Code(s): S52.021A - Displaced fracture of olecranon process without intraarticular extension of right ulna, initial encounter for closed fracture (3) Laceration of finger, left, complicated Code(s): S61.412A - LACERATION WITHOUT FOREIGN BODY OF LEFT HAND, INIT ENCNTR Qualifiers: Encounter type: initial encounter Qualified Code(s): S61.412A - Laceration without foreign body of left hand, initial encounter (4) Status post fall Code(s): Z91.81 - HISTORY OF FALLING 5 dog bite plan continue unasyn support monitor rest as per the team await for surgery plan
[2019-04-29] MEDS: metoPROLOL SUCCINATE 25 MG TAB.SR.24H (FP) PO SCH (14:07)
--- NOTE | 2019-04-29 14:13 | PN ---
Progress Note (short form) - Note Progress Note: Ortho Pt seen and examined s/p left index finger dog bite, right displaced olecranon fx. Currently having echo for new onset afib. left index- + splint, dressing c/d/i, no erythema, decr swelling, nvi right elbow- splint intact, + swelling, nvi a/p continue IV abx OR once cleared by cardio NPO after midnight surgical clearance d/w Dr. Julio
--- NOTE | 2019-04-29 15:11 | ECHO ---
Name: PALLAVI GILLETTE Exam:Adult Echocardiogram Study Date: 04/29/2019 01:54 PM Age: 89 yrs Reason For Study: A-Fib Height: 64 in Weight: 137 lb BSA: 1.7 m2 MMode/2D Measurements & Calculations IVSd: 1.1 cm Ao root diam: 2.9 cm LVIDd: 4.1 cm LA dimension: 3.5 cm LVIDs: 2.6 cm LVPWd: 0.86 cm EDV(Teich): 73.3 ml LVOT diam: 2.0 cm ESV(Teich): 25.5 ml Doppler Measurements & Calculations MV E max fox: 110.6 cm/sec MV dec slope: 521.9 cm/sec2 Ao V2 max: 217.7 cm/sec LV V1 max P.6 mmHg Ao max P.1 mmHg LV V1 mean P.94 mmHg Ao V2 mean: 153.4 cm/sec LV V1 max: 62.4 cm/sec Ao mean P.9 mmHg LV V1 mean: 45.5 cm/sec Ao V2 VTI: 37.9 cm LV V1 VTI: 11.4 cm BOBY(I,D): 0.94 cm2 BOBY(V,D): 0.90 cm2 MR max fox: 272.2 cm/sec SV(LVOT): 35.8 ml MR max P.6 mmHg TR max fox: 233.7 cm/sec PA V2 max: 117.8 cm/sec TR max P.9 mmHg PA max P.5 mmHg PI end-d fox: 79.8 cm/sec Procedure A complete two-dimensional transthoracic echocardiogram was performed (2D, M-mode, Doppler and color flow Doppler). The patient was in atrial fibrillation with rapid ventricular response during the exam with a heart rate exceeding 100 bpm. Left Ventricle The left ventricle is normal in size. The left ventricular ejection fraction is normal. Ejection Frac tion = 55%. Right Ventricle The right ventricle is normal in size and function. Atria Normal left and right atrial size and function. Mitral Valve There is severe mitral annular calcification. There is mild mitral regurgitation. Tricuspid Valve The tricuspid valve is normal in structure and function. There is mild tricuspid regurgitation. Right ventricular systolic pressure is normal. Aortic Valve There is moderate aortic sclerosis.;. Moderate valvular aortic stenosis. Aortic mean pressure gradien t= 11 mmHg. The calculated aortic valve area using the continuity equation is 0.9 cm2. Pulmonic Valve The pulmonic valve is not well visualized. Great Vessels The aortic root is normal size. Pericardium/Pleura There is no pericardial effusion. Interpretation Summary The left ventricle is normal in size. The left ventricular ejection fraction is normal. The right ventricle is normal in size and function. There is severe mitral annular calcification. Moderate valvular aortic stenosis. The patient was in atrial fibrillation with rapid ventricular response during the exam with a heart r ate exceeding 100 bpm. Jesus Alberto Monsivais 04/29/2019 03:11 PM
[2019-04-29 15:28] LABS: ACTIVATED PTT 95.5 SECONDS (25.2-36.5)
[2019-04-29 15:33] LABS: INR 1.3 (0.82-1.09); PROTHROMBIN TIME (PATIENT) 14.5 SEC (10.2-13.0)
[2019-04-29] MEDS: HEPARIN INFUSION - 25,000 UNITS/500 ML INFUS.BAG IVPB SCH (16:00)
[2019-04-29] MEDS ORDERED: MAGNESIUM OXIDE 400 MG TABLET (FP) PO ONE (18:03)
[2019-04-29 23:02] LABS: ACTIVATED PTT 53.8 SECONDS (25.2-36.5)
[2019-04-29 23:09] LABS: INR 1.27 (0.82-1.09); PROTHROMBIN TIME (PATIENT) 14.2 SEC (10.2-13.0)
[2019-04-30] MEDS ORDERED: AMPICILLIN NA/SULBACTAM NA 3 GM VIAL ONE ×4 (03:17→21:17)
[2019-04-30] MEDS ORDERED: SODIUM CHLORIDE 100 ML IVPB ONE ×4 (03:18→21:17)
[2019-04-30] MEDS: ACETAMINOPHEN 325 MG TABLET (FP) PO PRN (03:21)
[2019-04-30] MEDS: AMPICILLIN NA/SULBACTAM NA 3 GM in SODIUM CHLORIDE 100 ML IVPB SCH ×4 (03:21→21:19)
[2019-04-30 08:03] LABS: BASO % 0.8 % (0-2.0); EOS % 5.6 % (0-4.5); HEMOGLOBIN 10.7 GM/dl (10.7-15.3); LYMPH % 25.9 % (8-40); MCH 32.2 pg (25.7-33.7); MCHC 34.6 g/dl (32.0-36.0); MEAN CELL VOLUME 93.3 fl (80-96); MEAN PLT VOLUME 9.1 fl (7.5-11.1); MONO % 11.9 % (3.8-10.2); NEUT % 55.8 % (42.8-82.8); PLATELET COUNT 202 K/MM3 (134-434); RBC 3.33 M/mm3 (3.60-5.2); RDW 12.3 % (11.6-15.6); WHITE BLOOD COUNT 6.9 K/mm3 (4.0-10.8)
[2019-04-30 08:20] LABS: ALBUMIN 2.8 g/dl (3.4-5.0); BILIRUBIN,TOTAL 0.6 mg/dl (0.2-1); CALCIUM 8.5 mg/dl (8.5-10); CREATININE 0.7 mg/dl (0.55-1.3); MAGNESIUM 1.8 mg/dL (1.8-2.4); POTASSIUM 3.4 mmol/L (3.5-5.1)
--- NOTE | 2019-04-30 08:47 | PN ---
Physical Exam: SUBJECTIVE: Patient seen and examined oob to chair. OBJECTIVE: Vital Signs Period Temp Pulse Resp BP Sys/Reddy Pulse Ox Last 24 Hr 97.9 F-99.1 F 52-85 16-18 99-137/52-72 94-98 gENERAL: The patient is awake, alert, and fully oriented, in no acute distress. LUNGS: CTA HEART: Irregular, S1, S2 ABDOMEN: Soft, nontender, nondistended LUE: Index finger in splint with sterile dressing c/d/i RUE: soft dressing immobilization, swelling right hand improved, fingers warm, well-perfused, good cap refill, flex/extend, sensory intact NEUROLOGICAL: Cranial nerves II through XII grossly intact. Laboratory Results - last 24 hr 04/28/19 04/29/19 04/29/19 11:34 07:08 07:08 WBC RBC Hgb Hct MCV MCH MCHC RDW Plt Count MPV Absolute Neuts (auto) Neutrophils % Lymphocytes % Monocytes % Eosinophils % Basophils % PT with INR 14.1 H 13.2 H INR 1.27 H 1.18 PTT (Actin FS) Cancelled Sodium Potassium Chloride Carbon Dioxide Anion Gap BUN Creatinine Est GFR (CKD-EPI)AfAm Est GFR (CKD-EPI)NonAf Random Glucose Calcium Magnesium Total Bilirubin AST ALT Alkaline Phosphatase Total Protein Albumin Blood Type A POSITIVE Antibody Screen Negative 04/29/19 04/29/19 04/29/19 07:08 15:00 22:30 WBC RBC Hgb Hct MCV MCH MCHC RDW Plt Count MPV Absolute Neuts (auto) Neutrophils % Lymphocytes % Monocytes % Eosinophils % Basophils % PT with INR 14.5 H 14.2 H INR 1.30 H 1.27 H PTT (Actin FS) 95.5 H 53.8 H Sodium Potassium Chloride Carbon Dioxide Anion Gap BUN Creatinine Est GFR (CKD-EPI)AfAm Est GFR (CKD-EPI)NonAf Random Glucose Calcium Magnesium Total Bilirubin AST ALT Alkaline Phosphatase Total Protein Albumin Blood Type A POSITIVE Antibody Screen 04/30/19 04/30/19 07:30 07:30 WBC 6.9 RBC 3.33 L Hgb 10.7 Hct 31.0 L MCV 93.3 MCH 32.2 MCHC 34.6 RDW 12.3 Plt Count 202 MPV 9.1 Absolute Neuts (auto) 3.8 Neutrophils % 55.8 Lymphocytes % 25.9 Monocytes % 11.9 H Eosinophils % 5.6 H Basophils % 0.8 PT with INR INR PTT (Actin FS) Sodium 136 Potassium 3.4 L Chloride 108 H Carbon Dioxide 22 Anion Gap 6 L BUN 14.0 Creatinine 0.7 Est GFR (CKD-EPI)AfAm 89.03 Est GFR (CKD-EPI)NonAf 76.82 Random Glucose 94 Calcium 8.5 Magnesium 1.8 Total Bilirubin 0.6 AST 14 L ALT 9 L Alkaline Phosphatase 74 Total Protein 6.0 L Albumin 2.8 L Blood Type Antibody Screen Active Medications Generic Name Dose Route Start Last Admin Trade Name Freq PRN Reason Stop Dose Admin Acetaminophen 650 mg 04/26/19 02:28 04/30/19 03:21 Tylenol - PO 650 mg Q6H PRN Administration PAIN LEVEL 1-5 Heparin Sodium (Porcine) 1,000 unit 04/29/19 09:06 Heparin - IVPUSH PRN PRN Heparin Heparin Sodium (Porcine) 5,000 unit 04/29/19 09:06 Heparin - IVPUSH PRN PRN Heparin Ampicillin Sodium/Sulbactam 100 mls @ 200 mls/hr 04/25/19 21:00 04/30/19 03: 21 Sodium 3 gm/ Sodium Chloride IVPB 200 mls/hr Q6H-IV JASSON Administration Heparin Sodium/Dextrose 25,000 units in 500 mls @ 19.8 mls/hr 04/29/19 10:15 04/29/19 23:41 Heparin Infusion - IVPB 890 units/hr TITR JASSON 17.8 mls/hr Titration Protocol 990 UNITS/HR Metoprolol Succinate 25 mg 04/29/19 13:15 04/29/19 14:07 Toprol Xl - PO 25 mg DAILY JASSON Administration Potassium Chloride 40 meq 04/30/19 08:45 K-Dur - PO 04/30/19 14:46 Q6H JASSON ASSESSMENT/PLAN: 89 year-old female with no reported significant PMH but who has not followed with a health are provider in over 30 years. Initially came to the hospital for an infected dog bite to the left index finger. Fell outside the ED and fractured the right olecranon. Then found to be in newly diagnosed atrial fibrillation and aortic stenosis. Newly diagnosed atrial fibrillation with RVR Newly diagnosed moderate aortic stenosis --04/29 Echo: in afib with RVR >100bpm during exam; normal LV, EF 55%; normal RV; mild MR; mild TR; moderate , BOBY 0.9cm2 --continue Toprol XL 25mg daily, good rate control --continue heparin drip, PTT goal 50-70 --telemetry monitoring --cardiology pre-op evaluation complete Cellulitis secondary to dog bite left index finger --wound initially treated at urgent care, pus cleaned from wound, referred to [place] [facility] --in ED, tracking cellulitis seen, started on Unasyn (today day #4) --afebrile, leukocytosis seen on admission resolved --seen and evaluated by surgery --ID following Acute right olecranon fracture --04/25 xray: acute right olecranon fracture --plan is ORIF r/o Left wrist impaction fracture --04/25 xray: old impaction fracture FEN Fluids: PO intake adequate Electrolytes: replete as indicated Nutrition: regular diet; NPO after midnight DVT prophylaxis: on heparin drip Physical therapy Dispo: continues to require inpatient care. Full code. Visit type - Emergency Visit Emergency Visit: Yes ED Registration Date: 04/25/19 Care time: The patient presented to the Emergency Department on the above date and was hospitalized for further evaluation of their emergent condition. - New Patient This patient is new to me today: No - Critical Care Critical Care patient: No
[2019-04-30] MEDS: metoPROLOL SUCCINATE 25 MG TAB.SR.24H (FP) PO SCH (09:44)
[2019-04-30] MEDS: POTASSIUM CHLORIDE TABS 20 MEQ TABLET.ER (FP) PO SCH ×2 (09:44→15:00)
[2019-04-30 10:19] LABS: ACTIVATED PTT 52.8 SECONDS (25.2-36.5)
[2019-04-30 10:23] LABS: INR 1.19 (0.82-1.09); PROTHROMBIN TIME (PATIENT) 13.3 SEC (10.2-13.0)
[2019-04-30] MEDS: HEPARIN INFUSION - 25,000 UNITS/500 ML INFUS.BAG IVPB SCH (10:42)
--- NOTE | 2019-04-30 11:44 | PN ---
Progress Note (short form) - Note Progress Note: Ortho Pt and family requesting another orthopedic surgeon at this time.
--- NOTE | 2019-04-30 15:25 | PN ---
Progress Note, Physician History of Present Illness: stable no new issues - Current Medication List Current Medications: Active Medications Acetaminophen (Tylenol -) 650 mg PO Q6H PRN PRN Reason: PAIN LEVEL 1-5 Last Admin: 04/30/19 03:21 Dose: 650 mg Heparin Sodium (Porcine) (Heparin -) 1,000 unit IVPUSH PRN PRN PRN Reason: Heparin Heparin Sodium (Porcine) (Heparin -) 5,000 unit IVPUSH PRN PRN PRN Reason: Heparin Ampicillin Sodium/Sulbactam (Sodium 3 gm/ Sodium Chloride) 100 mls @ 200 mls/ hr IVPB Q6H-IV JASSON Last Admin: 04/30/19 14:22 Dose: 200 mls/hr Heparin Sodium/Dextrose (Heparin Infusion -) 25,000 units in 500 mls @ 19.8 mls /hr IVPB TITR JASSON; Protocol Last Admin: 04/30/19 10:42 Dose: 890 units/hr, 17.8 mls/hr Metoprolol Succinate (Toprol Xl -) 25 mg PO DAILY JASSON Last Admin: 04/30/19 09:44 Dose: 25 mg - Objective Vital Signs: Vital Signs Temperature 98.4 F 04/30/19 14:06 Pulse Rate 65 04/30/19 14:06 Respiratory Rate 18 04/30/19 14:06 Blood Pressure 123/49 L 04/30/19 14:06 O2 Sat by Pulse Oximetry (%) 97 04/30/19 14:06 Constitutional: Yes: No Distress, Calm Cardiovascular: Yes: S1, S2 Respiratory: Yes: Regular, CTA Bilaterally Gastrointestinal: Yes: Normal Bowel Sounds, Soft Musculoskeletal: Yes: WNL Extremities: Yes: Other Neurological: Yes: Alert, Oriented Psychiatric: Yes: Alert, Oriented Labs: CBC, BMP 04/30/19 07:30 04/30/19 07:30 INR, PTT INR 1.19 (0.82-1.09) 04/30/19 10:03 Assessment/Plan Problem List - Problems (1) Cellulitis Code(s): L03.90 - CELLULITIS, UNSPECIFIED (2) Closed olecranon fracture Code(s): S52.023A - DISP FX OF OLECRAN PRO W/O INTARTIC EXTN UNSP ULNA, INIT Qualifiers: Encounter type: initial encounter Laterality: right Qualified Code(s): S52.021A - Displaced fracture of olecranon process without intraarticular extension of right ulna, initial encounter for closed fracture (3) Laceration of finger, left, complicated Code(s): S61.412A - LACERATION WITHOUT FOREIGN BODY OF LEFT HAND, INIT ENCNTR Qualifiers: Encounter type: initial encounter Qualified Code(s): S61.412A - Laceration without foreign body of left hand, initial encounter (4) Status post fall Code(s): Z91.81 - HISTORY OF FALLING 5 dog bite plan continue unasyn support monitor rest as per the team await for surgery plan
--- NOTE | 2019-04-30 16:58 | PN ---
Progress Note (short form) - Note Progress Note: s: no cp sob palps dizzy Current Medications Generic Name Dose Route Start Last Admin Trade Name Freq PRN Reason Stop Dose Admin Acetaminophen 650 mg 04/26/19 02:28 04/30/19 03:21 Tylenol - PO 650 mg Q6H PRN Administration PAIN LEVEL 1-5 Heparin Sodium (Porcine) 1,000 unit 04/29/19 09:06 Heparin - IVPUSH PRN PRN Heparin Heparin Sodium (Porcine) 5,000 unit 04/29/19 09:06 Heparin - IVPUSH PRN PRN Heparin Ampicillin Sodium/Sulbactam 100 mls @ 200 mls/hr 04/25/19 21:00 04/30/19 14: 22 Sodium 3 gm/ Sodium Chloride IVPB 200 mls/hr Q6H-IV JASSON Administration Heparin Sodium/Dextrose 25,000 units in 500 mls @ 19.8 mls/hr 04/29/19 10:15 04/30/19 10:42 Heparin Infusion - IVPB 890 units/hr TITR JASSON 17.8 mls/hr Administration Protocol 990 UNITS/HR Metoprolol Succinate 25 mg 04/29/19 13:15 04/30/19 09:44 Toprol Xl - PO 25 mg DAILY JASSON Administration o: Vital Signs Period Temp Pulse Resp BP Sys/Reddy Pulse Ox Last 24 Hr 97.9 F-99.1 F 65-85 16-18 122-137/49-72 94-97 Constitutional: Yes: Well Nourished, No Distress, Calm Eyes: Yes: Conjunctiva Clear Neck: Yes: Supple, Trachea Midline Respiratory: Yes: Regular, CTA Bilaterally Gastrointestinal: Yes: Normal Bowel Sounds, Soft Cardiovascular: Yes: Pulse Irregular JVD: No Murmur: Yes: Grade 3 Extremities: Yes: Other (L hand with bandages, R elbow with bandages). No: Cold Edema: No Integumentary: No: Jaundice Neurological: Yes: Alert, Oriented Psychiatric: No: Agitated CBC, BMP 04/30/19 07:30 04/30/19 07:30 Assessment/Plan EKG atrial fibrillation, no ischemic changes CXR: no acute process atrial fibrillation - continue metoprolol succinate 25 mg daily - [id number] warrants AC - on heparin gtt perioperatively, can transition to NOAC when feasible post op preoperative evaluation, elbow fx - planned ORIF for elbow fx - she is currently asymptomatic, euvolemic. echo shows nl lvef, no severe valve dz. - no cardiac contraindications to elbow surgery fall - no dizziness, LOC - likely mechanical - PT eval after surgery : - Echo reviewed, nl LV function, moderate (mean gradient 11 mmHg, BOBY by continuity 0.9 cm). - rec outpatient follow up for surveillance.
[2019-05-01] MEDS ORDERED: AMPICILLIN NA/SULBACTAM NA 3 GM VIAL ONE ×4 (03:07→20:29)
[2019-05-01] MEDS ORDERED: SODIUM CHLORIDE 100 ML IVPB ONE ×4 (03:07→20:29)
[2019-05-01] MEDS: AMPICILLIN NA/SULBACTAM NA 3 GM in SODIUM CHLORIDE 100 ML IVPB SCH ×5 (03:13→20:40)
[2019-05-01] MEDS: ACETAMINOPHEN 325 MG TABLET (FP) PO PRN (04:33)
[2019-05-01 08:06] LABS: HEMATOCRIT 30.2 % (32.4-45.2); HEMOGLOBIN 10.1 GM/dl (10.7-15.3); MCH 31.4 pg (25.7-33.7); MCHC 33.3 g/dl (32.0-36.0); MEAN CELL VOLUME 94.2 fl (80-96); MEAN PLT VOLUME 9.1 fl (7.5-11.1); PLATELET COUNT 211 K/MM3 (134-434); RBC 3.21 M/mm3 (3.60-5.2); RDW 12.5 % (11.6-15.6)
[2019-05-01] MEDS: HEPARIN INFUSION - 25,000 UNITS/500 ML INFUS.BAG IVPB SCH ×2 (09:02→16:39)
[2019-05-01] MEDS: metoPROLOL SUCCINATE 25 MG TAB.SR.24H (FP) PO SCH (09:33)
--- NOTE | 2019-05-01 13:12 | PN ---
Progress Note, Physician History of Present Illness: stable no new issues - Current Medication List Current Medications: Active Medications Acetaminophen (Tylenol -) 650 mg PO Q6H PRN PRN Reason: PAIN LEVEL 1-5 Last Admin: 05/01/19 04:33 Dose: 650 mg Heparin Sodium (Porcine) (Heparin -) 1,000 unit IVPUSH PRN PRN PRN Reason: Heparin Last Admin: 05/01/19 09:33 Dose: 1,000 unit Heparin Sodium (Porcine) (Heparin -) 5,000 unit IVPUSH PRN PRN PRN Reason: Heparin Ampicillin Sodium/Sulbactam (Sodium 3 gm/ Sodium Chloride) 100 mls @ 200 mls/ hr IVPB Q6H-IV JASSON Last Admin: 05/01/19 09:33 Dose: 200 mls/hr Heparin Sodium/Dextrose (Heparin Infusion -) 25,000 units in 500 mls @ 19.8 mls /hr IVPB TITR JASSON; Protocol Last Admin: 05/01/19 09:02 Dose: 990 units/hr, 19.8 mls/hr Metoprolol Succinate (Toprol Xl -) 25 mg PO DAILY JASSON Last Admin: 05/01/19 09:33 Dose: 25 mg - Objective Vital Signs: Vital Signs Temperature 99.4 F 05/01/19 06:00 Pulse Rate 98 H 05/01/19 06:00 Respiratory Rate 18 05/01/19 06:00 Blood Pressure 131/62 05/01/19 06:00 O2 Sat by Pulse Oximetry (%) 94 L 05/01/19 06:00 Constitutional: Yes: No Distress, Calm Cardiovascular: Yes: S1, S2 Respiratory: Yes: Regular, CTA Bilaterally Gastrointestinal: Yes: Normal Bowel Sounds, Soft Musculoskeletal: Yes: WNL Extremities: Yes: Other Wound/Incision: Yes: Dressing Dry and Intact Neurological: Yes: Alert, Oriented Psychiatric: Yes: Alert, Oriented Labs: CBC, BMP 05/01/19 07:17 04/30/19 07:30 INR, PTT INR 1.19 (0.82-1.09) 04/30/19 10:03 Assessment/Plan Problem List - Problems (1) Cellulitis Code(s): L03.90 - CELLULITIS, UNSPECIFIED (2) Closed olecranon fracture Code(s): S52.023A - DISP FX OF OLECRAN PRO W/O INTARTIC EXTN UNSP ULNA, INIT Qualifiers: Encounter type: initial encounter Laterality: right Qualified Code(s): S52.021A - Displaced fracture of olecranon process without intraarticular extension of right ulna, initial encounter for closed fracture (3) Laceration of finger, left, complicated Code(s): S61.412A - LACERATION WITHOUT FOREIGN BODY OF LEFT HAND, INIT ENCNTR Qualifiers: Encounter type: initial encounter Qualified Code(s): S61.412A - Laceration without foreign body of left hand, initial encounter (4) Status post fall Code(s): Z91.81 - HISTORY OF FALLING 5 dog bite plan continue unasyn support monitor rest as per the team await for surgery plan
--- NOTE | 2019-05-01 14:25 | PN ---
Physical Exam: SUBJECTIVE: Patient seen and examined at bedside. Denies pain in right elbow and in left hand. Anxious to get surgery over with. OBJECTIVE: Vital Signs Period Temp Pulse Resp BP Sys/Reddy Pulse Ox Last 24 Hr 97.8 F-99.4 F 78-98 16-20 120-140/62-73 94-98 GENERAL: The patient is awake, alert, and fully oriented, in no acute distress. LUNGS: CTA HEART: Irregular, S1, S2 ABDOMEN: Soft, nontender, nondistended LUE: Dressing removed, small amount of dried blood. No erythema, mild swelling, no drainage, no s/s infection. Good cap refill. RUE: soft dressing immobilization, mild swelling right hand, fingers warm, well- perfused, good cap refill, flex/extend, sensory intact NEUROLOGICAL: Cranial nerves II through XII grossly intact. Laboratory Results - last 24 hr 05/01/19 05/01/19 07:17 07:17 WBC 7.0 RBC 3.21 L Hgb 10.1 L Hct 30.2 L MCV 94.2 MCH 31.4 MCHC 33.3 RDW 12.5 Plt Count 211 MPV 9.1 PTT (Actin FS) 45.4 H Active Medications Generic Name Dose Route Start Last Admin Trade Name Freq PRN Reason Stop Dose Admin Acetaminophen 650 mg 04/26/19 02:28 05/01/19 04:33 Tylenol - PO 650 mg Q6H PRN Administration PAIN LEVEL 1-5 Heparin Sodium (Porcine) 1,000 unit 04/29/19 09:06 05/01/19 09:33 Heparin - IVPUSH 1,000 unit PRN PRN Administration Heparin Heparin Sodium (Porcine) 5,000 unit 04/29/19 09:06 Heparin - IVPUSH PRN PRN Heparin Ampicillin Sodium/Sulbactam 100 mls @ 200 mls/hr 04/25/19 21:00 05/01/19 09: 33 Sodium 3 gm/ Sodium Chloride IVPB 200 mls/hr Q6H-IV JASSON Administration Heparin Sodium/Dextrose 25,000 units in 500 mls @ 19.8 mls/hr 04/29/19 10:15 05/01/19 09:02 Heparin Infusion - IVPB 990 units/hr TITR JASSON 19.8 mls/hr Administration Protocol 990 UNITS/HR Metoprolol Succinate 25 mg 04/29/19 13:15 05/01/19 09:33 Toprol Xl - PO 25 mg DAILY JASSON Administration ASSESSMENT/PLAN 89 year-old female with no reported significant PMH but who has not followed with a health are provider in over 30 years. Initially came to the hospital for an infected dog bite to the left index finger. Fell outside the ED and fractured the right olecranon. Then found to be in newly diagnosed atrial fibrillation and aortic stenosis. Newly diagnosed atrial fibrillation with RVR Newly diagnosed moderate aortic stenosis --04/29 Echo: in afib with RVR >100bpm during exam; normal LV, EF 55%; normal RV; mild MR; mild TR; moderate , BOBY 0.9cm2 --continue Toprol XL 25mg daily, good rate control --continue heparin drip, PTT goal 50-70 --telemetry monitoring --cardiology pre-op evaluation complete Cellulitis secondary to dog bite left index finger --wound initially treated at urgent care, pus cleaned from wound, referred to [facility] --in ED, tracking cellulitis seen, started on Unasyn (today day #5) --afebrile, leukocytosis seen on admission resolved --wound examined, no sign of infection --ID and surgery following Acute right olecranon fracture --04/25 xray: acute right olecranon fracture --plan is ORIF kev with Dr. Wallace r/o Left wrist impaction fracture --04/25 xray: old impaction fracture FEN Fluids: PO intake adequate Electrolytes: replete as indicated Nutrition: regular diet; NPO after midnight DVT prophylaxis: on heparin drip Physical therapy Dispo: continues to require inpatient care. Full code. Visit type - Emergency Visit Emergency Visit: Yes ED Registration Date: 04/25/19 Care time: The patient presented to the Emergency Department on the above date and was hospitalized for further evaluation of their emergent condition. - New Patient This patient is new to me today: No - Critical Care Critical Care patient: No
[2019-05-01 15:46] LABS: INR 1.27 (0.82-1.09); PROTHROMBIN TIME (PATIENT) 14.2 SEC (10.2-13.0)
[2019-05-02] MEDS ORDERED: AMPICILLIN NA/SULBACTAM NA 3 GM VIAL ONE ×2 (03:33→11:54)
[2019-05-02] MEDS ORDERED: SODIUM CHLORIDE 100 ML IVPB ONE ×2 (03:33→11:54)
[2019-05-02] MEDS: AMPICILLIN NA/SULBACTAM NA 3 GM in SODIUM CHLORIDE 100 ML IVPB SCH ×2 (03:37→11:00)
[2019-05-02 08:16] LABS: BASO % 0.9 % (0-2.0); EOS % 2.8 % (0-4.5); HEMOGLOBIN 10.4 GM/dl (10.7-15.3); LYMPH % 20.2 % (8-40); MCH 31.6 pg (25.7-33.7); MCHC 33.5 g/dl (32.0-36.0); MEAN CELL VOLUME 94.4 fl (80-96); MEAN PLT VOLUME 8.8 fl (7.5-11.1); NEUT % 63.1 % (42.8-82.8); PLATELET COUNT 230 K/MM3 (134-434); RBC 3.29 M/mm3 (3.60-5.2); RDW 12.1 % (11.6-15.6); WHITE BLOOD COUNT 6.7 K/mm3 (4.0-10.8)
[2019-05-02 08:25] LABS: ALBUMIN 2.7 g/dl (3.4-5.0); BILIRUBIN,TOTAL 0.7 mg/dl (0.2-1); CALCIUM 8.6 mg/dl (8.5-10); CREATININE 0.8 mg/dl (0.55-1.3); MAGNESIUM 1.7 mg/dL (1.8-2.4); POTASSIUM 3.7 mmol/L (3.5-5.1)
[2019-05-02] MEDS ORDERED: MAGNESIUM SULF 50% (8.12 MEQ/2 ML-1 GM VIAL) IVPB ONE (09:00)
[2019-05-02] MEDS: metoPROLOL SUCCINATE 25 MG TAB.SR.24H (FP) PO SCH (10:00)
--- NOTE | 2019-05-02 12:25 | PN ---
Progress Note, Physician History of Present Illness: stable doing well going to operative room today - Current Medication List Current Medications: Active Medications Acetaminophen (Tylenol -) 650 mg PO Q6H PRN PRN Reason: PAIN LEVEL 1-5 Last Admin: 05/01/19 04:33 Dose: 650 mg Heparin Sodium (Porcine) (Heparin -) 1,000 unit IVPUSH PRN PRN PRN Reason: Heparin Last Admin: 05/01/19 09:33 Dose: 1,000 unit Heparin Sodium (Porcine) (Heparin -) 5,000 unit IVPUSH PRN PRN PRN Reason: Heparin Ampicillin Sodium/Sulbactam (Sodium 3 gm/ Sodium Chloride) 100 mls @ 200 mls/ hr IVPB Q6H-IV JASSON Last Admin: 05/02/19 11:00 Dose: 200 mls/hr Heparin Sodium/Dextrose (Heparin Infusion -) 25,000 units in 500 mls @ 19.8 mls /hr IVPB TITR JASSON; Protocol Last Admin: 05/01/19 16:39 Dose: 990 units/hr, 19.8 mls/hr Metoprolol Succinate (Toprol Xl -) 25 mg PO DAILY JASSON Last Admin: 05/02/19 10:00 Dose: 25 mg - Objective Vital Signs: Vital Signs Temperature 97.9 F 05/02/19 05:45 Pulse Rate 82 05/02/19 05:45 Respiratory Rate 18 05/02/19 05:45 Blood Pressure 93/70 05/02/19 05:45 O2 Sat by Pulse Oximetry (%) 98 05/02/19 05:45 Constitutional: Yes: No Distress, Calm Cardiovascular: Yes: S1, S2 Respiratory: Yes: Regular, CTA Bilaterally Gastrointestinal: Yes: Normal Bowel Sounds, Soft Musculoskeletal: Yes: WNL Extremities: Yes: WNL Neurological: Yes: Alert, Oriented Psychiatric: Yes: Alert, Oriented Labs: CBC, BMP 05/02/19 07:47 05/02/19 07:47 INR, PTT INR 1.27 (0.82-1.09) H 05/01/19 15:00 Assessment/Plan Problem List - Problems (1) Cellulitis Code(s): L03.90 - CELLULITIS, UNSPECIFIED (2) Closed olecranon fracture Code(s): S52.023A - DISP FX OF OLECRAN PRO W/O INTARTIC EXTN UNSP ULNA, INIT Qualifiers: Encounter type: initial encounter Laterality: right Qualified Code(s): S52.021A - Displaced fracture of olecranon process without intraarticular extension of right ulna, initial encounter for closed fracture (3) Laceration of finger, left, complicated Code(s): S61.412A - LACERATION WITHOUT FOREIGN BODY OF LEFT HAND, INIT ENCNTR Qualifiers: Encounter type: initial encounter Qualified Code(s): S61.412A - Laceration without foreign body of left hand, initial encounter (4) Status post fall Code(s): Z91.81 - HISTORY OF FALLING 5 dog bite plan continue unasyn support monitor rest as per the team await for surgery plan
[2019-05-02] MEDS ORDERED: MIDAZOLAM HCL 2 MG/2 ML SINGLE DOSE VIAL ONE (12:44)
[2019-05-02] MEDS ORDERED: PROPOFOL 20 ML ONE (12:44)
--- NOTE | 2019-05-02 12:52 | PN ---
Physical Exam: SUBJECTIVE: Patient seen and examined at bedside. To OR today. OBJECTIVE: Vital Signs Period Temp Pulse Resp BP Sys/Reddy Pulse Ox Last 24 Hr 97.9 F-98.9 F 72-85 16-18 93-140/49-70 95-98 GENERAL: The patient is awake, alert, and fully oriented, in no acute distress. LUNGS: CTA HEART: Irregular, S1, S2 ABDOMEN: Soft, nontender, nondistended LUE: Dressing c/d/i; wound not visualized today RUE: soft dressing immobilization, mild swelling right hand, fingers warm, well- perfused, good cap refill, flex/extend, sensory intact NEUROLOGICAL: Cranial nerves II through XII grossly intact. Laboratory Results - last 24 hr 05/01/19 05/02/19 05/02/19 15:00 07:47 07:47 WBC 6.7 RBC 3.29 L Hgb 10.4 L Hct 31.0 L MCV 94.4 MCH 31.6 MCHC 33.5 RDW 12.1 Plt Count 230 MPV 8.8 Absolute Neuts (auto) 4.1 Neutrophils % 63.1 Lymphocytes % 20.2 Monocytes % 13.0 H Eosinophils % 2.8 Basophils % 0.9 PT with INR 14.2 H INR 1.27 H PTT (Actin FS) 55.0 H 49.5 H Sodium Potassium Chloride Carbon Dioxide Anion Gap BUN Creatinine Est GFR (CKD-EPI)AfAm Est GFR (CKD-EPI)NonAf Random Glucose Calcium Magnesium Total Bilirubin AST ALT Alkaline Phosphatase Total Protein Albumin 05/02/19 07:47 WBC RBC Hgb Hct MCV MCH MCHC RDW Plt Count MPV Absolute Neuts (auto) Neutrophils % Lymphocytes % Monocytes % Eosinophils % Basophils % PT with INR INR PTT (Actin FS) Sodium 138 Potassium 3.7 Chloride 105 Carbon Dioxide 23 Anion Gap 10 BUN 13.0 Creatinine 0.8 Est GFR (CKD-EPI)AfAm 75.76 Est GFR (CKD-EPI)NonAf 65.36 Random Glucose 98 Calcium 8.6 Magnesium 1.7 L Total Bilirubin 0.7 AST 13 L ALT 9 L Alkaline Phosphatase 75 Total Protein 6.0 L Albumin 2.7 L Active Medications Generic Name Dose Route Start Last Admin Trade Name Freq PRN Reason Stop Dose Admin Acetaminophen 650 mg 04/26/19 02:28 05/01/19 04:33 Tylenol - PO 650 mg Q6H PRN Administration PAIN LEVEL 1-5 Heparin Sodium (Porcine) 1,000 unit 04/29/19 09:06 05/01/19 09:33 Heparin - IVPUSH 1,000 unit PRN PRN Administration Heparin Heparin Sodium (Porcine) 5,000 unit 04/29/19 09:06 Heparin - IVPUSH PRN PRN Heparin Ampicillin Sodium/Sulbactam 100 mls @ 200 mls/hr 04/25/19 21:00 05/02/19 11: 00 Sodium 3 gm/ Sodium Chloride IVPB 200 mls/hr Q6H-IV JASSON Administration Heparin Sodium/Dextrose 25,000 units in 500 mls @ 19.8 mls/hr 04/29/19 10:15 05/01/19 16:39 Heparin Infusion - IVPB 990 units/hr TITR JASSON 19.8 mls/hr Administration Protocol 990 UNITS/HR Metoprolol Succinate 25 mg 04/29/19 13:15 05/02/19 10:00 Toprol Xl - PO 25 mg DAILY JASSON Administration ASSESSMENT/PLAN: 89 year-old female with no reported significant PMH but who has not followed with a health are provider in over 30 years. Initially came to the hospital for an infected dog bite to the left index finger. Fell outside the ED and fractured the right olecranon. Then found to be in newly diagnosed atrial fibrillation and aortic stenosis. Newly diagnosed atrial fibrillation with RVR Newly diagnosed moderate aortic stenosis --04/29 Echo: in afib with RVR >100bpm during exam; normal LV, EF 55%; normal RV; mild MR; mild TR; moderate , BOBY 0.9cm2 --continue Toprol XL 25mg daily, rate is well-controlled --hold heparin drip prior to surgery today --telemetry monitoring --cardiology pre-op evaluation complete Cellulitis secondary to dog bite left index finger --wound initially treated at urgent care, pus cleaned from wound, referred to [place] --in ED, tracking cellulitis seen, started on Unasyn (today day #6) --afebrile, leukocytosis seen on admission resolved --ID and surgery following Acute right olecranon fracture --04/25 xray: acute right olecranon fracture --plan is ORIF today with Dr. Lent r/o Left wrist impaction fracture --04/25 xray: old impaction fracture FEN Fluids: PO intake adequate Electrolytes: replete as indicated Nutrition: regular diet DVT prophylaxis: continue to hold heparin drip; if no post-op bleeding, can start Eliquis in 24 hours (Sunday afternoon) Physical therapy Dispo: continues to require inpatient care. Full code. Visit type - Emergency Visit Emergency Visit: Yes ED Registration Date: 04/25/19 Care time: The patient presented to the Emergency Department on the above date and was hospitalized for further evaluation of their emergent condition. - New Patient This patient is new to me today: No - Critical Care Critical Care patient: No
[2019-05-02] MEDS ORDERED: ceFAZolin SODIUM 1 GM VIAL ONE (13:08)
[2019-05-02] MEDS ORDERED: DEXAMETHASONE SOD PHOSPHATE 4 MG/1 ML VIAL ONE (13:57)
[2019-05-02] MEDS ORDERED: ONDANSETRON 4 MG/2 ML VIAL ONE ×2 (13:57→15:22)
--- NOTE | 2019-05-02 13:58 | OP ---
Operative Note - Note: Operative Date: 05/02/19 ([facility]) Pre-Operative Diagnosis: right olecranon fx Operation: right olecranon ORIF Post-Operative Diagnosis: Same as Pre-op Surgeon: Negro Wallace Linux Developer: Fidencio Candelaria Anesthesiologist/[employer] SOFTWARE DEVELOPER: Bon Stovall Anesthesia: General Estimated Blood Loss (mls): 5 (tourniquet)
[2019-05-02] MEDS ORDERED: ACETAMINOPHEN 1000 MG/100 ML VIAL (NON FORMULARY) IVPB ONE (14:07)
[2019-05-02] MEDS ORDERED: ACETAMINOPHEN INJECTION 100 ML IVPB ONE (14:11)
--- NOTE | 2019-05-02 14:18 | OP ---
DATE OF OPERATION: 05/02/2019 PREOPERATIVE DIAGNOSIS: Displaced right olecranon fracture. POSTOPERATIVE DIAGNOSIS: Displaced right olecranon fracture. PROCEDURE: Open reduction internal fixation, right olecranon fracture. SURGICAL ATTENDING: Negro Wallace MD POPULATION HEALTH COACH: NING Tilley ANESTHESIA: General with LMA. CLOSURE: Sergio cable pin for fracture, 0 Vicryl for periosteum, 2-0 Vicryl subcutaneous, and joy for skin. ESTIMATED BLOOD LOSS: Negligible. TOURNIQUET TIME: Approximately 40 minutes. COMPLICATIONS: None. CONDITION: To recovery room in stable condition. DESCRIPTION OF PROCEDURE: Patient was taken to the operating room on May 02, 2019. General anesthesia with LMA was administered by the anesthesiologist. IV Kefzol was administered prophylactically prior to the case. A well-padded pneumatic tourniquet was placed on the right proximal arm. A bump was placed under the scapula. The right shoulder area was prepped and draped in the usual sterile fashion. The arm was exsanguinated with an Esmarch bandage, and tourniquet was inflated to 250 mmHg. A longitudinal incision over the olecranon curving around medially. The olecranon was incised. Hemostasis achieved with Bovie cautery. This was done after the tourniquet was inflated to 250 mmHg. Flaps were made medially and laterally to expose the olecranon and the proximal ulna. Curettes and irrigation were used to clean up the fracture site. The periosteum was feathered back on both sides. A 0.3 reduction clamp was used to obtain an anatomic reduction. Two threaded cable pins were drilled in a parallel fashion from the tip of the olecranon, past the fracture site, into the proximal ulna. A transverse hole was drilled in the ulna shaft a few centimeters distal to the fracture site. After the threaded pins were screwed to where the flexible part of the pin was flush with the bone, 1 limb was passed through the hole in the ulna shaft and created a [id number] formation. Both cable limbs were placed through the crimping device into the tensioner. With the arm in extension, the tensioner was used to tension the cable against the crimping device and then it was crimped locking the cables in place. Both cables were then cut flush with the crimping device. The elbow was taken through a range of motion and found to go full extension with excellent fixation of the fracture. The fracture was irrigated with copious amounts of irrigation. Periosteum that was feathered back was used to cover over the pins to get some more biologic coverage over the pins themselves. Subcutaneous was closed with 2-0 Vicryl and joy used for skin. A sterile pressure dressing was placed over the elbow. A posterior splint in about 50 degrees of flexion was applied. Tourniquet was deflated. Total tourniquet time was approximately 40 minutes. No complications. Estimated blood loss negligible. Farhad [id number]
[2019-05-02] MEDS: SODIUM CHLORIDE 1,000 ML IV SCH (15:00)
[2019-05-02] MEDS: ONDANSETRON 4 MG/2 ML VIAL IVPUSH PRN (15:20)
[2019-05-02] MEDS ORDERED: oxyCODONE HCL 5 MG TABLET ONE (15:29)
--- NOTE | 2019-05-02 16:35 | PN ---
Progress Note (short form) - Note Progress Note: s: no cp sob palps dizzy Current Medications Generic Name Dose Route Start Last Admin Trade Name Freq PRN Reason Stop Dose Admin Acetaminophen 650 mg 04/26/19 02:28 05/01/19 04:33 Tylenol - PO 650 mg Q6H PRN Administration PAIN LEVEL 1-5 Fentanyl 25 mcg 05/02/19 14:07 Sublimaze Injection - IVPUSH [id number] PRN PAIN-PACU ORDER X 4 DOSES ONLY Heparin Sodium (Porcine) 1,000 unit 04/29/19 09:06 05/01/19 09:33 Heparin - IVPUSH 1,000 unit PRN PRN Administration Heparin Heparin Sodium (Porcine) 5,000 unit 04/29/19 09:06 Heparin - IVPUSH PRN PRN Heparin Ampicillin Sodium/Sulbactam 100 mls @ 200 mls/hr 04/25/19 21:00 05/02/19 11: 00 Sodium 3 gm/ Sodium Chloride IVPB 200 mls/hr Q6H-IV JASSON Administration Heparin Sodium/Dextrose 25,000 units in 500 mls @ 19.8 mls/hr 04/29/19 10:15 05/01/19 16:39 Heparin Infusion - IVPB 990 units/hr TITR JASSON 19.8 mls/hr Administration Protocol 990 UNITS/HR Cefazolin Sodium 1 gm in 50 mls @ 100 mls/hr 05/02/19 21:00 Ancef 1 Gm Premixed Ivpb - IVPB 05/03/19 05:29 Q8H JASSON Sodium Chloride 1,000 mls @ 75 mls/hr 05/02/19 14:15 Normal Saline - IV ASDIR JASSON Metoprolol Succinate 25 mg 04/29/19 13:15 05/02/19 10:00 Toprol Xl - PO 25 mg DAILY JASSON Administration Ondansetron HCl 4 mg 05/02/19 14:07 Zofran Injection IVPUSH Q6H PRN NAUSEA AND/OR VOMITING Oxycodone HCl 5 mg 05/02/19 14:07 Roxicodone - PO Q4H PRN PAIN LEVEL 7 - 10 Vital Signs Period Temp Pulse Resp BP Sys/Reddy Pulse Ox Last 24 Hr 97.9 F-98.7 F 72-88 14-18 93-142/49-78 95-98 Constitutional: Yes: Well Nourished, No Distress, Calm Eyes: Yes: Conjunctiva Clear Neck: Yes: Supple, Trachea Midline Respiratory: Yes: Regular, CTA Bilaterally Gastrointestinal: Yes: Normal Bowel Sounds, Soft Cardiovascular: Yes: Pulse Irregular JVD: No Murmur: Yes: Grade 3 Extremities: Yes: Other (L hand with bandages, R elbow with bandages). No: Cold Edema: No Integumentary: No: Jaundice Neurological: Yes: Alert, Oriented Psychiatric: No: Agitated CBC, BMP 05/02/19 07:47 05/02/19 07:47 Assessment/Plan EKG atrial fibrillation, no ischemic changes CXR: no acute process tele: afib, 90s atrial fibrillation - continue metoprolol succinate 25 mg daily - [id number] warrants AC - on heparin gtt perioperatively, can transition to NOAC when feasible post op preoperative evaluation, elbow fx - now s/p surgery - she is currently asymptomatic, euvolemic. echo shows nl lvef, no severe valve dz. fall - no dizziness, LOC - likely mechanical - PT eval after surgery : - Echo reviewed, nl LV function, moderate (mean gradient 11 mmHg, BOBY by continuity 0.9 cm). - rec outpatient follow up for surveillance.
[2019-05-02] MEDS: CEFAZOLIN 1 GM/D5W 1 GM/50 ML BAG IVPB SCH (21:22)
[2019-05-03] MEDS: CEFAZOLIN 1 GM/D5W 1 GM/50 ML BAG IVPB SCH (04:30)
[2019-05-03 08:38] LABS: ALBUMIN 2.4 g/dl (3.4-5.0); BILIRUBIN,TOTAL 0.6 mg/dl (0.2-1); CALCIUM 8.6 mg/dl (8.5-10); CREATININE 0.7 mg/dl (0.55-1.3); POTASSIUM 4.2 mmol/L (3.5-5.1); TOT PROT 5.6 g/dl (6.4-8.2)
[2019-05-03 08:39] LABS: BASO % 0.2 % (0-2.0); HEMATOCRIT 28.9 % (32.4-45.2); HEMOGLOBIN 9.8 GM/dl (10.7-15.3); LYMPH % 10.9 % (8-40); MCH 31.8 pg (25.7-33.7); MEAN CELL VOLUME 93.5 fl (80-96); NEUT % 77.9 % (42.8-82.8); PLATELET COUNT 229 K/MM3 (134-434); RBC 3.09 M/mm3 (3.60-5.2); WHITE BLOOD COUNT 7.3 K/mm3 (4.0-10.8)
--- NOTE | 2019-05-03 09:26 | PN ---
Physical Exam: SUBJECTIVE: Patient seen and examined. Pt c/o Rt arm pain with movement, denies cp, sob or palpitations. OBJECTIVE: Vital Signs Period Temp Pulse Resp BP Sys/Reddy Pulse Ox Last 24 Hr 97.7 F-98.7 F 75-89 14-19 128-159/50-80 97-100 GENERAL: The patient is awake, alert, and fully oriented, in no acute distress. HEAD: Normal with no signs of trauma. EYES: PERRL, extraocular movements intact, sclera anicteric, conjunctiva clear. No ptosis. ENT: Ears normal, nares patent, oropharynx clear without exudates, moist mucous membranes. NECK: Trachea midline, full range of motion, supple. LUNGS: Breath sounds equal, clear to auscultation bilaterally, no wheezes, no crackles, no accessory muscle use. HEART: Irregular, HM ABDOMEN: Soft, nontender, nondistended, normoactive bowel sounds, no guarding, no rebound, no hepatosplenomegaly, no masses. EXTREMITIES: 2+ pulses, warm, well-perfused, no edema. RTarm post -op dsg intact, good capillary refill, fingers edematous, ecchymosis Rt upper arm - left index finger cellulitis improved, dsg intact, no drainage noted. NEUROLOGICAL: Cranial nerves II through XII grossly intact. Normal speech, gait not observed. PSYCH: Normal mood, normal affect. SKIN: Warm, dry, normal turgor, no rashes or lesions noted Laboratory Results - last 24 hr 05/03/19 05/03/19 07:50 07:50 WBC 7.3 RBC 3.09 L Hgb 9.8 L Hct 28.9 L MCV 93.5 MCH 31.8 MCHC 34.0 RDW 12.0 Plt Count 229 MPV 9.0 Absolute Neuts (auto) 5.7 Neutrophils % 77.9 Lymphocytes % 10.9 Monocytes % 11.0 H Eosinophils % 0.0 Basophils % 0.2 Sodium 137 Potassium 4.2 Chloride 106 Carbon Dioxide 21 Anion Gap 10 BUN 19.0 H Creatinine 0.7 Est GFR (CKD-EPI)AfAm 89.03 Est GFR (CKD-EPI)NonAf 76.82 Random Glucose 128 H Calcium 8.6 Magnesium 2.0 Total Bilirubin 0.6 AST 15 ALT 10 L Alkaline Phosphatase 73 Total Protein 5.6 L Albumin 2.4 L Active Medications Generic Name Dose Route Start Last Admin Trade Name Freq PRN Reason Stop Dose Admin Acetaminophen 650 mg 04/26/19 02:28 05/01/19 04:33 Tylenol - PO 650 mg Q6H PRN Administration PAIN LEVEL 1-5 Heparin Sodium (Porcine) 1,000 unit 04/29/19 09:06 05/01/19 09:33 Heparin - IVPUSH 1,000 unit PRN PRN Administration Heparin Heparin Sodium (Porcine) 5,000 unit 04/29/19 09:06 Heparin - IVPUSH PRN PRN Heparin Heparin Sodium/Dextrose 25,000 units in 500 mls @ 19.8 mls/hr 04/29/19 10:15 05/01/19 16:39 Heparin Infusion - IVPB 990 units/hr TITR JASSON 19.8 mls/hr Administration Protocol 990 UNITS/HR Sodium Chloride 1,000 mls @ 75 mls/hr 05/02/19 14:15 05/02/19 15:00 Normal Saline - IV 75 mls/hr ASDIR JASSON Administration Metoprolol Succinate 25 mg 04/29/19 13:15 05/02/19 10:00 Toprol Xl - PO 25 mg DAILY JASSON Administration Ondansetron HCl 4 mg 05/02/19 14:07 05/02/19 15:20 Zofran Injection IVPUSH 4 mg Q6H PRN Administration NAUSEA AND/OR VOMITING Oxycodone HCl 5 mg 05/02/19 14:07 Roxicodone - PO Q4H PRN PAIN LEVEL 7 - 10 ASSESSMENT/PLAN: 89 year-old female with no reported significant PMH but who has not followed with a health are provider in over 30 years. Initially came to the hospital for an infected dog bite to the left index finger. Fell outside the ED and fractured the right olecranon. Then found to be in newly diagnosed atrial fibrillation and aortic stenosis. *Newly diagnosed atrial fibrillation with RVR Newly diagnosed moderate aortic stenosis -04/29 Echo: in afib with RVR >100bpm during exam; normal LV, EF 55%; normal RV; mild MR; mild TR; moderate , BOBY 0.9cm2 -increased Toprol XL to 25mg BID,rate is well-controlled -telemetry monitoring- no cardiac events noted -cardiology pre-op evaluation completed - [id number] warrants AC -initially received Heparin drip,will switch to Eliquis tonight *Cellulitis secondary to dog bite left index finger- stable -wound initially treated at urgent care, pus cleaned from wound, referred to [facility] -in ED, tracking cellulitis seen, started on Unasyn (today day #7) -afebrile with no leukocytosis -ID and surgery following - BC showed no growth *Acute right olecranon fracture -04/25 xray: acute right olecranon fracture -s/p right olecranon ORIF on 05/02/19 - pain control - management per sx - encourage to use Incentive spirometer *r/o Left wrist impaction fracture -04/25 xray: old impaction fracture - no pain reported *FEN Fluids: PO intake adequate Electrolytes: replete as indicated Nutrition: regular diet DVT prophylaxis: On Heparin drip, start Eliquis tonight. Physical therapy Dispo: continues to require inpatient care. Full code. Visit type - Emergency Visit Emergency Visit: Yes ED Registration Date: 04/25/19 Care time: The patient presented to the Emergency Department on the above date and was hospitalized for further evaluation of their emergent condition. - New Patient This patient is new to me today: No - Critical Care Critical Care patient: No
[2019-05-03] MEDS: oxyCODONE HCL 5 MG TABLET PO PRN (10:24)
[2019-05-03] MEDS: ACETAMINOPHEN 325 MG TABLET (FP) PO PRN (10:25)
[2019-05-03] MEDS: metoPROLOL SUCCINATE 25 MG TAB.SR.24H (FP) PO SCH ×2 (10:25→21:25)
--- NOTE | 2019-05-03 10:47 | PN ---
Progress Note, Physician Chief Complaint: alert, no CP/SOB/palps History of Present Illness: surgery done. TELE: AF, rates occasionally 120s - Current Medication List Current Medications: Active Medications Acetaminophen (Tylenol -) 650 mg PO Q6H PRN PRN Reason: PAIN LEVEL 1-5 Last Admin: 05/03/19 10:25 Dose: 650 mg Heparin Sodium (Porcine) (Heparin -) 1,000 unit IVPUSH PRN PRN PRN Reason: Heparin Last Admin: 05/01/19 09:33 Dose: 1,000 unit Heparin Sodium (Porcine) (Heparin -) 5,000 unit IVPUSH PRN PRN PRN Reason: Heparin Heparin Sodium/Dextrose (Heparin Infusion -) 25,000 units in 500 mls @ 19.8 mls /hr IVPB TITR JASSON; Protocol Last Admin: 05/01/19 16:39 Dose: 990 units/hr, 19.8 mls/hr Sodium Chloride (Normal Saline -) 1,000 mls @ 75 mls/hr IV ASDIR JASSON Last Admin: 05/02/19 15:00 Dose: 75 mls/hr Metoprolol Succinate (Toprol Xl -) 25 mg PO DAILY [facility] Last Admin: 05/03/19 10:25 Dose: 25 mg Ondansetron HCl (Zofran Injection) 4 mg IVPUSH Q6H PRN PRN Reason: NAUSEA AND/OR VOMITING Last Admin: 05/02/19 15:20 Dose: 4 mg Oxycodone HCl (Roxicodone -) 5 mg PO Q4H PRN PRN Reason: PAIN LEVEL 7 - 10 Last Admin: 05/03/19 10:24 Dose: 5 mg - Objective Vital Signs: Vital Signs Temperature 98.1 F 05/03/19 06:00 Pulse Rate 86 05/03/19 06:00 Respiratory Rate 16 05/03/19 09:00 Blood Pressure 138/50 L 05/03/19 06:00 O2 Sat by Pulse Oximetry (%) 100 05/03/19 09:00 Constitutional: Yes: No Distress, Calm Cardiovascular: Yes: Pulse Irregular Respiratory: Yes: CTA Bilaterally Gastrointestinal: Yes: Soft Edema: No Labs: CBC, BMP 05/03/19 07:50 05/03/19 07:50 INR, PTT INR 1.27 (0.82-1.09) H 05/01/19 15:00 Assessment/Plan Assessment/Plan EKG atrial fibrillation, no ischemic changes CXR: no acute process tele: afib, now w/ rates in 120s on occasion atrial fibrillation: suboptimal rate control - titrate Metoprolol to BID - [id number] warrants AC - on heparin gtt perioperatively, can transition to NOAC when feasible post op post op evaluation, elbow fx: - now s/p surgery - she is currently asymptomatic, euvolemic. echo shows nl lvef, no severe valve dz. fall: - no dizziness, LOC - likely mechanical - PT eval after surgery : - Echo reviewed, nl LV function, moderate (mean gradient 11 mmHg, BOBY by continuity 0.9 cm). - rec outpatient follow up for surveillance.
[2019-05-03] MEDS: AMPICILLIN NA/SULBACTAM NA 3 GM in SODIUM CHLORIDE 100 ML IVPB SCH ×2 (15:01→20:27)
[2019-05-03] MEDS: SODIUM CHLORIDE 1,000 ML IV SCH (15:01)
--- NOTE | 2019-05-03 18:44 | PN ---
Progress Note, Physician History of Present Illness: Pt states she feels well. s/p Rt april ORIF POD#1. No tenderness in Lt index finger. - Current Medication List Current Medications: Active Medications Acetaminophen (Tylenol -) 650 mg PO Q6H PRN PRN Reason: PAIN LEVEL 1-5 Last Admin: 05/03/19 10:25 Dose: 650 mg Apixaban (Eliquis -) 5 mg PO BID [facility] Heparin Sodium (Porcine) (Heparin -) 1,000 unit IVPUSH PRN PRN PRN Reason: Heparin Last Admin: 05/01/19 09:33 Dose: 1,000 unit Heparin Sodium (Porcine) (Heparin -) 5,000 unit IVPUSH PRN PRN PRN Reason: Heparin Heparin Sodium/Dextrose (Heparin Infusion -) 25,000 units in 500 mls @ 19.8 mls /hr IVPB TITR JASSON; Protocol Last Titration: 05/03/19 12:55 Dose: 990 units/hr, 19.8 mls/hr Sodium Chloride (Normal Saline -) 1,000 mls @ 75 mls/hr IV ASDIR JASSON Last Admin: 05/03/19 15:01 Dose: 75 mls/hr Ampicillin Sodium/Sulbactam (Sodium 3 gm/ Sodium Chloride) 100 mls @ 200 mls/ hr IVPB Q6H-IV JASSON Last Admin: 05/03/19 15:01 Dose: 200 mls/hr Metoprolol Succinate (Toprol Xl -) 25 mg PO BID JASSON Ondansetron HCl (Zofran Injection) 4 mg IVPUSH Q6H PRN PRN Reason: NAUSEA AND/OR VOMITING Last Admin: 05/02/19 15:20 Dose: 4 mg Oxycodone HCl (Roxicodone -) 5 mg PO Q4H PRN PRN Reason: PAIN LEVEL 7 - 10 Last Admin: 05/03/19 10:24 Dose: 5 mg - Objective Vital Signs: Vital Signs Temperature 98.4 F 05/03/19 14:00 Pulse Rate 83 05/03/19 14:00 Respiratory Rate 19 05/03/19 14:00 Blood Pressure 123/53 L 05/03/19 14:00 O2 Sat by Pulse Oximetry (%) 100 05/03/19 14:00 Constitutional: Yes: No Distress, Calm Cardiovascular: Yes: Pulse Irregular Respiratory: Yes: Regular Gastrointestinal: Yes: Normal Bowel Sounds, Soft Genitourinary: Yes: WNL Integumentary: Yes: WNL Wound/Incision: Yes: Other (RT elbow dressing intact Lt index finger no edema/ erythema/drainage -- hand erythema resolved) Neurological: Yes: Alert Labs: CBC, BMP 05/03/19 07:50 05/03/19 07:50 INR, PTT INR 1.27 (0.82-1.09) H 05/01/19 15:00 Microbiology 04/25/19 17:35 Blood - Peripheral Venous Blood Culture - Final NO GROWTH AFTER 5 DAYS INCUBATION 04/25/19 17:35 Blood - Peripheral Venous Blood Culture - Final NO GROWTH AFTER 5 DAYS INCUBATION Problem List - Problems (1) Cellulitis Code(s): L03.90 - CELLULITIS, UNSPECIFIED (2) Closed olecranon fracture Code(s): S52.023A - DISP FX OF OLECRAN PRO W/O INTARTIC EXTN UNSP ULNA, INIT Qualifiers: Encounter type: initial encounter Laterality: right Qualified Code(s): S52.021A - Displaced fracture of olecranon process without intraarticular extension of right ulna, initial encounter for closed fracture (3) HTN (hypertension) Code(s): I10 - ESSENTIAL (PRIMARY) HYPERTENSION Assessment/Plan Lt index finger dog bite injury/cellulitis RT olecranon fracture s/p ORIF POD #1 AFIB -- finger improving -- continue antibiotics -- HR currently controlled
[2019-05-03] MEDS: APIXABAN 5 MG TABLET PO SCH (19:44)
[2019-05-04] MEDS: AMPICILLIN NA/SULBACTAM NA 3 GM in SODIUM CHLORIDE 100 ML IVPB SCH ×2 (03:12→10:15)
[2019-05-04] MEDS: ACETAMINOPHEN 325 MG TABLET (FP) PO PRN ×2 (07:30→21:12)
[2019-05-04] MEDS: oxyCODONE HCL 5 MG TABLET PO PRN ×2 (07:30→21:11)
[2019-05-04 08:21] LABS: BASO % 0.6 % (0-2.0); EOS % 1.1 % (0-4.5); HEMATOCRIT 32.5 % (32.4-45.2); HEMOGLOBIN 10.7 GM/dl (10.7-15.3); LYMPH % 23.4 % (8-40); MCH 31.3 pg (25.7-33.7); MEAN PLT VOLUME 8.9 fl (7.5-11.1); MONO % 9.2 % (3.8-10.2); NEUT % 65.7 % (42.8-82.8); PLATELET COUNT 308 K/MM3 (134-434); RBC 3.43 M/mm3 (3.60-5.2); RDW 12.3 % (11.6-15.6); WHITE BLOOD COUNT 9.7 K/mm3 (4.0-10.8)
[2019-05-04] MEDS ORDERED: PT OWN MED DRAWER 7, Y5N ONE (09:13)
[2019-05-04] MEDS: APIXABAN 5 MG TABLET PO SCH ×2 (09:21→21:06)
[2019-05-04] MEDS: metoPROLOL SUCCINATE 25 MG TAB.SR.24H (FP) PO SCH ×2 (09:22→21:06)
--- NOTE | 2019-05-04 09:28 | PN ---
Progress Note, Physician Chief Complaint: Remained afebrile - Current Medication List Current Medications: Active Medications Acetaminophen (Tylenol -) 650 mg PO Q6H PRN PRN Reason: PAIN LEVEL 1-5 Last Admin: 05/04/19 07:30 Dose: 650 mg Apixaban (Eliquis -) 5 mg PO BID [facility] Last Admin: 05/04/19 09:21 Dose: 5 mg Sodium Chloride (Normal Saline -) 1,000 mls @ 75 mls/hr IV ASDIR JASSON Last Admin: 05/03/19 15:01 Dose: 75 mls/hr Ampicillin Sodium/Sulbactam (Sodium 3 gm/ Sodium Chloride) 100 mls @ 200 mls/ hr IVPB Q6H-IV JASSON Last Admin: 05/04/19 03:12 Dose: 200 mls/hr Metoprolol Succinate (Toprol Xl -) 25 mg PO BID [facility] Last Admin: 05/04/19 09:22 Dose: 25 mg Ondansetron HCl (Zofran Injection) 4 mg IVPUSH Q6H PRN PRN Reason: NAUSEA AND/OR VOMITING Last Admin: 05/02/19 15:20 Dose: 4 mg Oxycodone HCl (Roxicodone -) 5 mg PO Q4H PRN PRN Reason: PAIN LEVEL 7 - 10 Last Admin: 05/04/19 07:30 Dose: 5 mg - Objective Vital Signs: Vital Signs Temperature 98.6 F 05/04/19 06:00 Pulse Rate 78 05/04/19 06:00 Respiratory Rate 18 05/04/19 06:00 Blood Pressure 117/73 05/04/19 06:00 O2 Sat by Pulse Oximetry (%) 99 05/04/19 06:00 Elderly F comfortable not in distress HEENT: Mm moist, no anemia NECK: No JVd No Bruit CHEST: CTA B/L CVS: S1S2 IR murmur in AA ABD: no distention, non tender EXT: No edema feet, Rt Olecranon fracture s/p surgery, Left finger cellulitis and laceration , Pulses + [employer]: AOX3 non focal Labs: CBC, BMP 05/04/19 08:05 05/03/19 07:50 INR, PTT INR 1.27 (0.82-1.09) H 05/01/19 15:00 Problem List - Problems (1) Cellulitis Assessment/Plan: s/P Dog bite will DC Unasyn, switched to Augmentin and discussed with with ID, pain pain is well controlled Problems reviewed: Yes Code(s): L03.90 - CELLULITIS, UNSPECIFIED Qualifiers: Site of cellulitis of extremity: upper extremity (2) Olecranon fracture Assessment/Plan: S/P surgery pain control, management as per orthopaedics Problems reviewed: Yes Code(s): S52.023A - DISP FX OF OLECRAN PRO W/O INTARTIC EXTN UNSP ULNA, INIT Qualifiers: Encounter type: initial encounter Laterality: right (3) New onset a-fib Assessment/Plan: Rate controlled on Eliquis Problems reviewed: Yes Code(s): I48.91 - UNSPECIFIED ATRIAL FIBRILLATION (4) Moderate aortic stenosis Assessment/Plan: asymptomatic Problems reviewed: Yes Code(s): I35.0 - NONRHEUMATIC AORTIC (VALVE) STENOSIS (5) HTN (hypertension) Assessment/Plan: Well controlled Problems reviewed: Yes Code(s): I10 - ESSENTIAL (PRIMARY) HYPERTENSION (6) Laceration of finger, left, complicated Assessment/Plan: Due to dog bite cont current management Problems reviewed: Yes Code(s): S61.412A - LACERATION WITHOUT FOREIGN BODY OF LEFT HAND, INIT ENCNTR Qualifiers: Encounter type: initial encounter Qualified Code(s): S61.412A - Laceration without foreign body of left hand, initial encounter (7) Status post fall Assessment/Plan: Mechanical F/U PT recommondations. Problems reviewed: Yes Code(s): Z91.81 - HISTORY OF FALLING
[2019-05-04] MEDS: ONDANSETRON 4 MG/2 ML VIAL IVPUSH PRN (16:55)
[2019-05-04] MEDS: AMOX TR/POT CLAV 500MG/125MG TABLETS (FP) PO SCH (17:14)
--- NOTE | 2019-05-04 18:44 | PN ---
Progress Note, Physician History of Present Illness: Pt is doing well. Denies pain in RUE or Lt finger. Tolerating antibiotics, switched to PO. - Current Medication List Current Medications: Active Medications Acetaminophen (Tylenol -) 650 mg PO Q6H PRN PRN Reason: PAIN LEVEL 1-5 Last Admin: 05/04/19 07:30 Dose: 650 mg Amoxicillin/Clavulanate Potassium (Augmentin - 500mg Tablet) 1 tab PO BID@0800, 1730 [facility] Last Admin: 05/04/19 17:14 Dose: 1 tab Apixaban (Eliquis -) 5 mg PO BID [facility] Last Admin: 05/04/19 09:21 Dose: 5 mg Sodium Chloride (Normal Saline -) 1,000 mls @ 75 mls/hr IV ASDIR [facility] Last Admin: 05/03/19 15:01 Dose: 75 mls/hr Metoprolol Succinate (Toprol Xl -) 25 mg PO BID [facility] Last Admin: 05/04/19 09:22 Dose: 25 mg Oxycodone HCl (Roxicodone -) 5 mg PO Q4H PRN PRN Reason: PAIN LEVEL 7 - 10 Last Admin: 05/04/19 07:30 Dose: 5 mg - Objective Vital Signs: Vital Signs Temperature 97.8 F 05/04/19 18:00 Pulse Rate 80 05/04/19 18:00 Respiratory Rate 18 05/04/19 18:00 Blood Pressure 122/54 L 05/04/19 18:00 O2 Sat by Pulse Oximetry (%) 100 05/04/19 18:00 Constitutional: Yes: No Distress, Calm Cardiovascular: Yes: Regular Rate and Rhythm Respiratory: Yes: Regular Gastrointestinal: Yes: Normal Bowel Sounds, Soft Genitourinary: Yes: WNL Integumentary: Yes: WNL Wound/Incision: Yes: Other (RUE dressing intact Lt finger resolved swelling/ erythema, no tenderness, no drainage) Neurological: Yes: Alert, Oriented Psychiatric: Yes: Alert Labs: CBC, BMP 05/04/19 08:05 05/03/19 07:50 INR, PTT INR 1.27 (0.82-1.09) H 05/01/19 15:00 Microbiology 04/25/19 17:35 Blood - Peripheral Venous Blood Culture - Final NO GROWTH AFTER 5 DAYS INCUBATION 04/25/19 17:35 Blood - Peripheral Venous Blood Culture - Final NO GROWTH AFTER 5 DAYS INCUBATION Problem List - Problems (1) Cellulitis Code(s): L03.90 - CELLULITIS, UNSPECIFIED Qualifiers: Site of cellulitis of extremity: upper extremity (2) Closed olecranon fracture Code(s): S52.023A - DISP FX OF OLECRAN PRO W/O INTARTIC EXTN UNSP ULNA, INIT Qualifiers: Encounter type: initial encounter Laterality: right Qualified Code(s): S52.021A - Displaced fracture of olecranon process without intraarticular extension of right ulna, initial encounter for closed fracture (3) HTN (hypertension) Code(s): I10 - ESSENTIAL (PRIMARY) HYPERTENSION Assessment/Plan Lt index finger dog bite laceration/cellulitis s/p irrigation/sutures RT olecranon fracture s/p ORIF POD #2 AFIB -- clinically improving, afebrile, without pain -- antibiotics switched to Augmentin - continue for at least 2 more days -- HR currently controlled
[2019-05-05 08:08] LABS: CALCIUM 8.7 mg/dl (8.5-10); CREATININE 0.8 mg/dl (0.55-1.3); POTASSIUM 3.9 mmol/L (3.5-5.1)
[2019-05-05 08:11] LABS: BASO % 0.9 % (0-2.0); HEMATOCRIT 30.1 % (32.4-45.2); HEMOGLOBIN 9.9 GM/dl (10.7-15.3); LYMPH % 25.8 % (8-40); MCHC 32.7 g/dl (32.0-36.0); MEAN CELL VOLUME 94.6 fl (80-96); MEAN PLT VOLUME 9.1 fl (7.5-11.1); MONO % 10.1 % (3.8-10.2); NEUT % 59.2 % (42.8-82.8); PLATELET COUNT 317 K/MM3 (134-434); RBC 3.18 M/mm3 (3.60-5.2); RDW 12.6 % (11.6-15.6); WHITE BLOOD COUNT 6.6 K/mm3 (4.0-10.8)
--- NOTE | 2019-05-05 08:40 | PN ---
Progress Note (short form) - Note Progress Note: Ortho Pt seen and examined s/p right olecranon orif, left index finger dog bite Selected Entries 05/05/19 06:00 Temperature 98.0 F Pulse Rate 64 Respiratory 17 Rate Blood Pressure 139/72 Laboratory Tests 05/05/19 07:00 WBC 6.6 Hgb 9.9 L Hct 30.1 L Plt Count 317 splint intact, nvi left index- sutures in place, decr swelling and erythema, incr rom nvi a/p maintain splint abx as per ID ok to d/c from ortho pov f/u in the office in 7-10 days
--- NOTE | 2019-05-05 09:13 | DS ---
Physical Exam: SUBJECTIVE: Patient seen and examined oob to chair. OBJECTIVE: Vital Signs Period Temp Pulse Resp BP Sys/Reddy Pulse Ox Last 24 Hr 97.8 F-98.9 F 64-98 17-19 115-139/54-72 94-100 PHYSICAL EXAM GENERAL: The patient is awake, alert, and fully oriented, in no acute distress. LUNGS: CTA HEART: Irregular, S1, S2 ABDOMEN: Soft, nontender, nondistended LUE: Dressing c/d/i; wound not visualized today RUE: splinted, fingers warm, well-perfused, good cap refill, flex/extend, sensory intact NEUROLOGICAL: Cranial nerves II through XII grossly intact. LABS Laboratory Results - last 24 hr 05/05/19 05/05/19 05/05/19 07:00 07:00 07:00 WBC 6.6 RBC 3.18 L Hgb 9.9 L Hct 30.1 L MCV 94.6 MCH 31.0 MCHC 32.7 RDW 12.6 Plt Count 317 MPV 9.1 Absolute Neuts (auto) 3.8 Neutrophils % 59.2 Lymphocytes % 25.8 Monocytes % 10.1 Eosinophils % 4.0 Basophils % 0.9 PTT (Actin FS) 29.9 Sodium 138 Potassium 3.9 Chloride 106 Carbon Dioxide 24 Anion Gap 8 BUN 21.0 H Creatinine 0.8 Est GFR (CKD-EPI)AfAm 75.76 Est GFR (CKD-EPI)NonAf 65.36 Random Glucose 95 Calcium 8.7 HOSPITAL COURSE: Date of Admission:04/25/19 Date of Discharge: 05/05/19 89 year-old female with no reported significant PMH but who has not followed with a health are provider in over 30 years. Initially came to the hospital for an infected dog bite to the left index finger. Fell outside the ED and fractured the right olecranon. On admission found to be in newly diagnosed atrial fibrillation and aortic stenosis. Newly diagnosed atrial fibrillation with RVR Newly diagnosed moderate aortic stenosis --04/29 Echo: in afib with RVR >100bpm during exam; normal LV, EF 55%; normal RV; mild MR; mild TR; moderate , BOBY 0.9cm2 --started on Toprol XL 25mg daily with suboptimal rate control, increased to BID --maintained on a heparin drip pre-op, post-op started on Eliquis 5mg BID Cellulitis secondary to dog bite left index finger --wound initially treated at urgent care, pus cleaned from wound, referred to [facility] --in ED, tracking cellulitis seen, treated with Unasyn x 9 days, switched to PO Augmentin x 2 more days --sutures remain in place at time of discharge, needs to be seen by ortho in one week for suture removal Acute right olecranon fracture s/p ORIF --04/25 xray: acute right olecranon fracture --05/02 ORIF --f/u with ortho in one week, no PT Minutes to complete discharge: 35 Discharge Summary Problems reviewed: Yes Reason For Visit: CLOSED FRACTURE OF OLECRANON PROCESS OF ULNA Current Active Problems Cellulitis (Acute) Closed olecranon fracture (Acute) Laceration of finger, left, complicated (Acute) Moderate aortic stenosis (Acute) New onset a-fib (Acute) Olecranon fracture (Acute) Status post fall (Acute) Condition: Fair - Instructions Referrals: Negro Wallace MD [Staff Physician] - - Home Medications Comprehensive Discharge Medication List: Ambulatory Orders Aspirin [Aspirin EC] 162 mg PO DAILY 11/09/16 This patient is new to me today: No Emergency Visit: Yes ED Registration Date: 04/25/19 Care time: The patient presented to the Emergency Department on the above date and was hospitalized for further evaluation of their emergent condition. Critical Care patient: No - Discharge Referral Referred to [facility] No
[2019-05-05] MEDS: APIXABAN 5 MG TABLET PO SCH (09:26)
[2019-05-05] MEDS: AMOX TR/POT CLAV 500MG/125MG TABLETS (FP) PO SCH (09:27)
[2019-05-05] MEDS: metoPROLOL SUCCINATE 25 MG TAB.SR.24H (FP) PO SCH (09:27)
[2019-05-05 14:09] VITALS: BP 128/70; PULSE 67; TEMP 99.1
--- NOTE | 2019-05-05 15:49 | PN ---
Progress Note, Physician History of Present Illness: stable doing well post op finger looks good - Current Medication List Current Medications: Active Medications Acetaminophen (Tylenol -) 650 mg PO Q6H PRN PRN Reason: PAIN LEVEL 1-5 Last Admin: 05/04/19 21:12 Dose: 650 mg Amoxicillin/Clavulanate Potassium (Augmentin - 500mg Tablet) 1 tab PO BID@0800, 1730 [facility] Last Admin: 05/05/19 09:27 Dose: 1 tab Apixaban (Eliquis -) 5 mg PO BID [facility] Last Admin: 05/05/19 09:26 Dose: 5 mg Sodium Chloride (Normal Saline -) 1,000 mls @ 75 mls/hr IV ASDIR [facility] Last Admin: 05/03/19 15:01 Dose: 75 mls/hr Metoprolol Succinate (Toprol Xl -) 25 mg PO BID [facility] Last Admin: 05/05/19 09:27 Dose: 25 mg - Objective Vital Signs: Vital Signs Temperature 99.1 F 05/05/19 14:07 Pulse Rate 67 05/05/19 14:07 Respiratory Rate 16 05/05/19 14:07 Blood Pressure 128/70 05/05/19 14:07 O2 Sat by Pulse Oximetry (%) 96 05/05/19 14:07 Constitutional: Yes: No Distress, Calm Cardiovascular: Yes: S1, S2 Respiratory: Yes: Regular, CTA Bilaterally Gastrointestinal: Yes: Normal Bowel Sounds, Soft Musculoskeletal: Yes: WNL Extremities: Yes: Other Wound/Incision: Yes: Dressing Dry and Intact Neurological: Yes: Alert, Oriented Psychiatric: Yes: Alert, Oriented Labs: CBC, BMP 05/05/19 07:00 05/05/19 07:00 INR, PTT INR 1.27 (0.82-1.09) H 05/01/19 15:00 Assessment/Plan Problem List - Problems (1) Cellulitis Code(s): L03.90 - CELLULITIS, UNSPECIFIED (2) Closed olecranon fracture Code(s): S52.023A - DISP FX OF OLECRAN PRO W/O INTARTIC EXTN UNSP ULNA, INIT Qualifiers: Encounter type: initial encounter Laterality: right Qualified Code(s): S52.021A - Displaced fracture of olecranon process without intraarticular extension of right ulna, initial encounter for closed fracture (3) Laceration of finger, left, complicated Code(s): S61.412A - LACERATION WITHOUT FOREIGN BODY OF LEFT HAND, INIT ENCNTR Qualifiers: Encounter type: initial encounter Qualified Code(s): S61.412A - Laceration without foreign body of left hand, initial encounter (4) Status post fall Code(s): Z91.81 - HISTORY OF FALLING 5 dog bite plan continue current mgmt as per ortho
== END 2019-05-05 16:15 | DRG 512 ==
LOC: FER 15:23 → FM/S 18:40
PROVIDERS: ADMIT Internal Medicine; ATTEND Nurse Practitioner Acute Care
PROC: 0PSK04Z Reposition Right Ulna with Internal Fixation Device, Open Approach (ICD-10-PCS; principal; 2019-05-02 13:16)
DX: S52.021A Displaced fracture of olecranon process without intraarticular extension of right ulna, initial encounter for closed fracture (principal); S61.412A Laceration without foreign body of left hand, initial encounter; L03.012 Cellulitis of left finger; I48.91 Unspecified atrial fibrillation; W54.0XXA Bitten by dog, initial encounter; I35.0 Nonrheumatic aortic (valve) stenosis; R01.1 Cardiac murmur, unspecified; Z91.81 History of falling; W01.0XXA Fall on same level from slipping, tripping and stumbling without subsequent striking against object, initial encounter; Y92.480 Sidewalk as the place of occurrence of the external cause; S52.022A Displaced fracture of olecranon process without intraarticular extension of left ulna, initial encounter for closed fracture; S61.251A Open bite of left index finger without damage to nail, initial encounter
CPT/HCPCS: 36415; 71046-TC-FY; 73070-TC-RT-FY; 73110-TC-LT-FY; 73140-TC-LT-FY; 80048; 80053; 81003; 83735; 85025; 85027; 85610; 85651; 85730; 86140; 86850; 86900; 86901; 87040; 90715; 93005; 93306-TC; 94760; 97116-GP; 97163-GP; 99284-25; J0131; J1644; J7030